=== PATIENT | male | born 1960 | race Caucasian/White ===

== ENCOUNTER 2017-08-25 01:04 | Inpatient (IN) | payer MEDICAID, OTHER ==
[~2017-08-25] VITALS: Ht 180.3 cm; Wt 83.9 kg
[2017-08-25] VITALS (8 sets, daily range): BP systolic 119–146; BP diastolic 64–85
[2017-08-25] MEDS ORDERED: Morphine Sulfate 4mg/ml Inj IVP ONE (01:30)
[2017-08-25 02:12] LABS: BASOPHILS % (AUTO) 0.4 % (0.0-2.0); HEMATOCRIT 49.5 % (42.0-52.0); LYMPHOCYTES % (AUTO) 6.1 % (20.0-45.0); MEAN CORPUSCULAR VOLUME 84 FL (80-99); MONOCYTES % (AUTO) 10.9 % (1.0-10.0); NEUTROPHILS % (AUTO) 82.5 % (45.0-75.0); PLATELET COUNT 245 K/UL (150-450); RED BLOOD COUNT 5.89 M/UL (4.70-6.10); RED CELL DISTRIBUTION WIDTH 11.1 % (11.6-14.8); WHITE BLOOD COUNT 16.8 K/UL (4.8-10.8)
[2017-08-25 02:12] LABS: BILIRUBIN, URINE 1+ (NEGATIVE); GLUCOSE, URINE (UA) NEGATIVE (NEGATIVE); KETONES,URINE 4+ (NEGATIVE); LEUKOCYTE ESTERASE ,URINE NEGATIVE (NEGATIVE); NITRITE,URINE NEGATIVE (NEGATIVE); PH,URINE 5 (4.5-8.0); PROTEIN,URINE 2+ (NEGATIVE); UROBILINOGEN,URINE 1 MG/DL (0.0-1.0)
[2017-08-25 02:22] LABS: APPEARANCE,URINE CLEAR; COLOR,URINE YELLOW
[2017-08-25 02:36] LABS: ALANINE AMINOTRANSFERASE 25 U/L (12-78); ALBUMIN 4.1 G/DL (3.4-5.0); ALBUMIN/GLOBULIN RATIO 1.2 (1.0-2.7); ALKALINE PHOSPHATASE 88 U/L (46-116); ANION GAP 9 mmol/L (5-15); ASPARTATE AMINO TRANSFERASE 19 U/L (15-37); BILIRUBIN,TOTAL 1.6 MG/DL (0.2-1.0); BLOOD UREA NITROGEN 57 mg/dL (7-18); CALCIUM 8.2 MG/DL (8.5-10.1); CARBON DIOXIDE 37 MMOL/L (21-32); CHLORIDE 74 MMOL/L (98-107); CREATININE 1.3 MG/DL (0.55-1.30); SODIUM 121 MMOL/L (136-145)
[2017-08-25 02:37] LABS: POTASSIUM 2.6 MMOL/L (3.5-5.1)
[2017-08-25 02:39] LABS: BILIRUBIN,DIRECT 0.3 MG/DL (0.0-0.3)
--- NOTE | 2017-08-25 04:47 | Emergency Room Report ---
History of Present Illness General Chief Complaint: Nausea, Vomiting, and Diarrhea Source: Patient Present Illness HPI 56-year-old male presents ED for evaluation. complaining of abdominal pain nausea and vomiting 3 days. Feels like his diverticulitis. States he feels "obstructed". Unable to have bowel movement. Pain is sharp, 5 out of 10, nonradiating. Denies fevers or chills. Denies chest pain or shortness of breath. No other aggravating relieving factors. Denies any other associated symptoms Allergies: Coded Allergies: No Known Allergies (Unverified , 08/25/17) Patient History Past Medical History: other - diverticulitis Past Surgical History: none Pertinent Family History: none Social History: Denies: smoking, alcohol use, drug use Immunizations: UTD Reviewed Nursing Documentation: PMH: Agreed; PSxH: Agreed Nursing Documentation-PMH Hx Gastrointestinal Problems: Yes - Diverticulitis Review of Systems All Other Systems: negative except mentioned in HPI Physical Exam Vital Signs Date Time Temp Pulse Resp B/P (MAP) Pulse Ox O2 Delivery O2 Flow Rate FiO2 08/25/17 01:02 97.4 110 20 147/83 99 Room Air 97.3 Sp02 EP Interpretation: reviewed, normal General Appearance: no apparent distress, alert, GCS 15, non-toxic Head: normocephalic, atraumatic Eyes: bilateral eye normal inspection, bilateral eye PERRL ENT: hearing grossly normal, normal pharynx, no angioedema, normal voice Neck: full range of motion, supple/symm/no masses Respiratory: chest non-tender, lungs clear, normal breath sounds, speaking full sentences Cardiovascular #1: regular rate, rhythm, no edema Cardiovascular #2: 2+ carotid (R), 2+ carotid (L), 2+ radial (R), 2+ radial (L) , 2+ dorsalis pedis (R), 2+ dorsalis pedis (L) Gastrointestinal: normal bowel sounds, soft, non-distended, no guarding, no rebound, tenderness Rectal: deferred Genitourinary: normal inspection, no CVA tenderness Musculoskeletal: back normal, gait/station normal, normal range of motion, non- tender Neurologic: alert, oriented x3, responsive, motor strength/tone normal, sensory intact, speech normal Psychiatric: judgement/insight normal, memory normal, mood/affect normal, no suicidal/homicidal ideation Reflexes: 3+ bicep (R), 3+ bicep (L), 3+ tricep (R), 3+ tricep (L), 3+ knee (R) , 3+ knee (L) Skin: normal color, no rash, warm/dry, well hydrated Lymphatic: no adenopathy Medical Decision Making Diagnostic Impression: Primary Impression: Small bowel obstruction ER Course Hospital Course 56-year-old male presents to ED with abdominal pain and vomiting Differential diagnoses include: BPH, cystitis, pyelonephritis, kidney stone,SBO Clinical course Patient placed on stretcher. telemetry monitor. After initial history and physical I ordered labs, IV fluids, UA, pain medication and CT scan Labs - noted leukocytosis, Hb/Hct stable. K 2.6 CT abdomen and pelvis - SBO with transition point in RLQ Potassium repleted. Discussed findings with patient. Recommend admission Case discussed with Dr. Resendez and he agreed to accept the patient to his service for further care and support. Dr. Bob agreed to consult on case I feel this is a highly complex case requiring extensive working including EKG/ Rhythm strip, Xray/CT/US, Blood/urine lab work, repeat exams while in ED, and administration of strong opiates/narcotics for pain control, admission to hospital or close patient follow up. Diagnosis - small bowel obstruction Patient admitted to floor in serious condition Labs Test 08/25/17 01:50 08/25/17 01:57 Urine Color Yellow Urine Appearance Clear Urine pH 5 (4.5-8.0) Urine Specific [place] 1.020 (1.005-1.035) Urine Protein 2+ (NEGATIVE) Urine Glucose (UA) Negative (NEGATIVE) Urine Ketones 4+ (NEGATIVE) Urine Occult Blood 2+ (NEGATIVE) Urine Nitrite Negative (NEGATIVE) Urine Bilirubin 1+ (NEGATIVE) Urine Ictotest Negative Urine Urobilinogen 1 MG/DL (0.0-1.0) Urine Leukocyte Esterase Negative (NEGATIVE) Urine RBC 2-4 /HPF (0 - 0) Urine WBC 2-4 /HPF (0 - 0) Urine Squamous Epithelial Cells Few /LPF (NONE/OCC) Urine Bacteria Few /HPF (NONE) White Blood Count 16.8 K/UL (4.8-10.8) Red Blood Count 5.89 M/UL (4.70-6.10) Hemoglobin 18.0 G/DL (14.2-18.0) Hematocrit 49.5 % (42.0-52.0) Mean Corpuscular Volume 84 FL (80-99) Mean Corpuscular Hemoglobin 30.5 PG (27.0-31.0) Mean Corpuscular Hemoglobin Concent 36.3 G/DL (32.0-36.0) Red Cell Distribution Width 11.1 % (11.6-14.8) Platelet Count 245 K/UL (150-450) Mean Platelet Volume 9.5 FL (6.5-10.1) Neutrophils (%) (Auto) 82.5 % (45.0-75.0) Lymphocytes (%) (Auto) 6.1 % (20.0-45.0) Monocytes (%) (Auto) 10.9 % (1.0-10.0) Eosinophils (%) (Auto) 0.0 % (0.0-3.0) Basophils (%) (Auto) 0.4 % (0.0-2.0) Sodium Level 121 MMOL/L (136-145) Potassium Level 2.6 MMOL/L (3.5-5.1) Chloride Level 74 MMOL/L (98-107) Carbon Dioxide Level 37 MMOL/L (21-32) Anion Gap 9 mmol/L (5-15) Blood Urea Nitrogen 57 mg/dL (7-18) Creatinine 1.3 MG/DL (0.55-1.30) Estimat Glomerular Filtration Rate 56.7 mL/min (>60) Glucose Level 131 MG/DL (74-106) Calcium Level 8.2 MG/DL (8.5-10.1) Total Bilirubin 1.6 MG/DL (0.2-1.0) Direct Bilirubin 0.3 MG/DL (0.0-0.3) Aspartate Amino Transf (AST/SGOT) 19 U/L (15-37) Alanine Aminotransferase (ALT/SGPT) 25 U/L (12-78) Alkaline Phosphatase 88 U/L (46-116) Total Protein 7.6 G/DL (6.4-8.2) Albumin 4.1 G/DL (3.4-5.0) Globulin 3.5 g/dL Albumin/Globulin Ratio 1.2 (1.0-2.7) Lipase 121 U/L (73-393) CT/MRI/US Diagnostic Results CT/MRI/US Diagnostic Results : Imaging Test Ordered: CT A/P Impression complete small bowel obstruction. transition point in RLQ Last Vital Signs Date Time Temp Pulse Resp B/P (MAP) Pulse Ox O2 Delivery O2 Flow Rate FiO2 08/25/17 02:40 97.4 08/25/17 01:02 110 20 147/83 99 Room Air Status: improved Disposition: ADMITTED INPATIENT Condition: Serious Scripts No Active Prescriptions or Reported Meds Referrals: [facility],REFERRING (PCP) Kenroy Hernandez MD Aug 25, 2017 04:47
[2017-08-25] MEDS ORDERED: LORazepam Inj 2mg/ml 1ml IV PRN (07:30)
[2017-08-25] MEDS ORDERED: Nitroglycerin Subl 0.4mg tab SL PRN (07:30)
[2017-08-25] MEDS ORDERED: Mylanta II UD 30ml ORAL PRN (07:30)
[2017-08-25] MEDS ORDERED: Morphine Sulfate 4mg/ml Inj IVP PRN (07:30)
[2017-08-25] MEDS: Heparin 5000 units/ml inj SUBQ SCH ×2 (09:00→20:25)
--- NOTE | 2017-08-25 10:59 | GI Initial Consult Note ---
History of Present Illness General Date patient seen: Aug 25, 2017 Time patient seen: 10:56 Reason for Hospitalization: Nausea, Vomiting, and Diarrhea Referring physician: VARGHESE LOPEZ Reason for Consultation: SBO, N/V Present Illness HPI 56-year-old male presents ED for evaluation. complaining of abdominal pain nausea and vomiting 3 days. Feels like his diverticulitis. States he feels "obstructed". Unable to have bowel movement. Pain is sharp, 5 out of 10, nonradiating. Denies fevers or chills. Denies chest pain or shortness of breath. No other aggravating relieving factors. Denies any other associated symptoms GI consulted for SBO, reports of N/V. Pt seen on floor, awake A&Ox4 currently has NGT with gastric output. Abdomen is soft, non-distended. Patient had BM this morning. He presents today with possible SBO, hypokalemia. Had recent colonoscopy x 3 months, found with diverticulosis and polyps. Home Meds No Active Prescriptions or Reported Meds Med list reviewed/reconciled: Yes Allergies: Coded Allergies: No Known Allergies (Unverified , 08/25/17) Patient History History Provided By: Patient, Medical Record PMH Narrative Past Medical History: other - diverticulitis Past Surgical History: none Pertinent Family History: none Social History: Denies: smoking, alcohol use, drug use Immunizations: UTD Reviewed Nursing Documentation: PMH: Agreed; PSxH: Agreed Nursing Documentation-PMH Hx Gastrointestinal Problems: Yes - Diverticulitis Social History: Denies: smoking, alcohol use, drug use, other Review of Systems All Other Systems: negative except mentioned in HPI Physical Exam Vital Signs Date Time Temp Pulse Resp B/P (MAP) Pulse Ox O2 Delivery O2 Flow Rate FiO2 08/25/17 01:02 97.4 110 20 147/83 99 Room Air 97.3 Sp02 EP Interpretation: reviewed, normal Labs Laboratory Tests Test 08/25/17 01:50 08/25/17 01:57 Urine Color Yellow Urine Appearance Clear Urine pH 5 (4.5-8.0) Urine Specific [place] 1.020 (1.005-1.035) Urine Protein 2+ (NEGATIVE) H Urine Glucose (UA) Negative (NEGATIVE) Urine Ketones 4+ (NEGATIVE) H Urine Occult Blood 2+ (NEGATIVE) H Urine Nitrite Negative (NEGATIVE) Urine Bilirubin 1+ (NEGATIVE) H Urine Ictotest Negative Urine Urobilinogen 1 MG/DL (0.0-1.0) H Urine Leukocyte Esterase Negative (NEGATIVE) Urine RBC 2-4 /HPF (0 - 0) H Urine WBC 2-4 /HPF (0 - 0) Urine Squamous Epithelial Cells Few /LPF (NONE/OCC) Urine Bacteria Few /HPF (NONE) White Blood Count 16.8 K/UL (4.8-10.8) H Red Blood Count 5.89 M/UL (4.70-6.10) Hemoglobin 18.0 G/DL (14.2-18.0) Hematocrit 49.5 % (42.0-52.0) Mean Corpuscular Volume 84 FL (80-99) Mean Corpuscular Hemoglobin 30.5 PG (27.0-31.0) Mean Corpuscular Hemoglobin Concent 36.3 G/DL (32.0-36.0) H Red Cell Distribution Width 11.1 % (11.6-14.8) L Platelet Count 245 K/UL (150-450) Mean Platelet Volume 9.5 FL (6.5-10.1) Neutrophils (%) (Auto) 82.5 % (45.0-75.0) H Lymphocytes (%) (Auto) 6.1 % (20.0-45.0) L Monocytes (%) (Auto) 10.9 % (1.0-10.0) H Eosinophils (%) (Auto) 0.0 % (0.0-3.0) Basophils (%) (Auto) 0.4 % (0.0-2.0) Sodium Level 121 MMOL/L (136-145) L Potassium Level 2.6 MMOL/L (3.5-5.1) *L Chloride Level 74 MMOL/L (98-107) L Carbon Dioxide Level 37 MMOL/L (21-32) H Anion Gap 9 mmol/L (5-15) Blood Urea Nitrogen 57 mg/dL (7-18) H Creatinine 1.3 MG/DL (0.55-1.30) Estimat Glomerular Filtration Rate 56.7 mL/min (>60) Glucose Level 131 MG/DL (74-106) H Calcium Level 8.2 MG/DL (8.5-10.1) L Total Bilirubin 1.6 MG/DL (0.2-1.0) H Direct Bilirubin 0.3 MG/DL (0.0-0.3) Aspartate Amino Transf (AST/SGOT) 19 U/L (15-37) Alanine Aminotransferase (ALT/SGPT) 25 U/L (12-78) Alkaline Phosphatase 88 U/L (46-116) Total Protein 7.6 G/DL (6.4-8.2) Albumin 4.1 G/DL (3.4-5.0) Globulin 3.5 g/dL Albumin/Globulin Ratio 1.2 (1.0-2.7) Lipase 121 U/L (73-393) General Appearance: well appearing, no apparent distress, alert Head: normocephalic EENT: PERRL/EOMI, normal ENT inspection Neck: supple Respiratory: normal breath sounds, no respiratory distress Cardiovascular: normal rate Gastrointestinal: normal inspection, non tender, soft, normal bowel sounds, non -distended Rectal: deferred Genitourinary: deferred Musculoskeletal: normal inspection, back normal Neurologic: normal inspection, alert, oriented x3, responsive Psychiatric: normal inspection, judgement/insight normal, memory normal Skin: normal inspection, normal color, no rash, warm/dry, palpation normal, well hydrated Lymphatic: normal inspection, no adenopathy Current Medications Current Medications Medications (Trade) Dose Ordered Sig/Sandi Route PRN Reason Start Time Stop Time Status Last Admin Dose Admin Acetaminophen (Tylenol) 650 mg Q4H PRN ORAL fever>100.5 08/25/17 07:30 09/24/17 07:29 Al Hydroxide/Mg Hydroxide (Mylanta II) 30 ml Q6H PRN ORAL dyspepsia 08/25/17 07:30 09/24/17 07:29 Dextrose (Dextrose 50%) 25 ml STAT PRN IV Hypoglycemia 08/25/17 07:15 09/24/17 07:14 Dextrose (Dextrose 50%) 50 ml STAT PRN IV Hypoglycemia 08/25/17 07:15 09/24/17 07:14 Dextrose/Sodium Chloride 1,000 ml @ 75 mls/hr [id number] IV 08/25/17 07:30 09/24/17 07:29 Diphenhydramine HCl (Benadryl) 25 mg Q6H PRN ORAL Itching/Pruritis 08/25/17 07:30 09/24/17 07:29 Heparin Sodium (Porcine) (Heparin 5000 units/ml) 5,000 units EVERY 12 HOURS SUBQ 08/25/17 09:00 09/24/17 08:59 Lorazepam (Ativan 2mg/ml 1ml) 1 mg Q4H PRN IV agitation 08/25/17 07:30 09/01/17 07:29 Morphine Sulfate (Morphine Sulfate) 2 mg Q4H PRN IVP Severe Pain (Pain Scale 7-10) 08/25/17 07:30 09/01/17 07:29 Nitroglycerin (Ntg) 0.4 mg Q5M X 3 DOSES PRN SL Prn Chest Pain 08/25/17 07:30 09/24/17 07:29 Ondansetron HCl (Zofran) 4 mg Q6H PRN IVP Nausea & Vomiting 08/25/17 07:30 09/24/17 07:29 Pantoprazole (Protonix) 40 mg DAILY IV 08/25/17 09:00 09/24/17 08:59 Polyethylene Glycol (Miralax) 17 gm HSPRN PRN ORAL Constipation 08/25/17 21:00 09/24/17 20:59 Promethazine HCl (Phenergan) 25 mg EVERY 8 HOURS PRN IV refractory nausea 08/25/17 07:30 09/24/17 07:29 Temazepam (Restoril) 15 mg HSPRN PRN ORAL Insomnia 08/25/17 21:00 09/01/17 20:59 GI: Plan Problems: (1) Dehydration (2) Leukocytosis (3) Small bowel obstruction Plan fu surgical recs maintain NPO + IVFs bowel decompression >> NGT to LIS fu CT AP pain mgmt electrolyte correction abx serial imaging prn fu labs Discussed with Dr. Chaney. Thank you for this patient referral, we will follow. Alis Martinez N.P. Aug 25, 2017 10:59
[2017-08-25] MEDS: Pantoprazole Inj IV SCH (11:04)
[2017-08-25] MEDS: D5 1/2NS 1,000 ML IV SCH ×2 (11:04→20:25)
--- NOTE | 2017-08-25 13:21 | Diagnostic Imaging Report ---
Clinical Indication: Abdominal pain 3 days Technique: No oral contrast utilized, per emergency room physician request IV administration nonionic contrast. Venous phase spiral acquisition obtained through the abdomen. The initial acquisition did not include the pelvis, so additional acquisitions obtained through the pelvis subsequently. Multiplanar reconstructions were generated. Total dose length product 563.33 and 678 mGycm. CTDIvol(s) 12.44 and 15 mGy. Dose reduction achieved using automated exposure control Comparison: none Findings: Small bowel loops are massively dilated and fluid-filled. The stomach is also massively dilated, fluid-filled and gas-filled. A transition point is seen from dilated small bowel to collapsed ileum in the pelvis, just to the right of midline, images 69 through 75 series 3 pelvic exam. The appendix is normal. There is colonic diverticulosis. No evidence of diverticulitis. No free or loculated intraperitoneal air or fluid is evident The liver demonstrates scattered subcentimeter low-attenuation lesions which are too small to characterize, most likely benign simple cysts or bile hamartomas. It demonstrates mild low attenuation, consistent with fatty change The gallbladder, bile ducts, pancreas, spleen, adrenals are unremarkable. The right kidney demonstrates a 2 mm upper pole calyceal calculus. The left kidney is unremarkable. No hydronephrosis or hydroureter or ureteral calculi demonstrated. The bladder is unremarkable. The bones are unremarkable except for degenerative changes of the right hip.. There are atelectatic changes at both lung bases. Impression: Positive for high-grade small bowel obstruction, transition point at the level of the ileum in the right pelvis. The appearance is somewhat suggestive of adhesions. Diverticulosis. No evidence of diverticulitis Evidence of mild hepatic steatosis Nonobstructive right upper pole renal calculus Centimeters low-attenuation liver lesions, too small to characterize, most likely benign simple cysts or bile hamartomas. No further follow-up necessary Other findings as noted, including basilar atelectasis, degenerative changes of the right hip This agrees with the preliminary interpretation provided overnight by [facility] teleradiology service. The CT scanner at [facility] is accredited by the [employer] and the scans are performed using protocols designed to limit radiation exposure to as low as reasonably achievable to attain images of sufficient resolution adequate for diagnostic evaluation.
--- NOTE | 2017-08-25 17:22 | Diagnostic Imaging Report ---
Indication: Abdominal pain, nausea, vomiting Technique: Brandt-scale and duplex images of the upper abdomen were obtained Comparison: none Findings: Gallbladder is unremarkable, without stones, wall thickening, nor pericholecystic fluid. Sonographic Gaitan's sign is negative. Common bile duct measures 5 mm in diameter. No intrahepatic biliary ductal dilatation. Liver demonstrates normal echogenicity, no focal abnormality. Portal vein and hepatic veins are patent. Pancreas is unremarkable. Spleen is unremarkable. Left kidney measures 12.9 cm in length. Right kidney measures 11.8 cm length. Both kidneys demonstrate normal echogenicity. There is no hydronephrosis. There are small renal cysts bilaterally . Non-aneurysmal abdominal aorta . Impression: Essentially unremarkable exam. Negative for gallstones, dilated ducts, or other significant abnormality Incidental finding of bilateral renal cysts
--- NOTE | 2017-08-25 19:07 | Consultation ---
History of Present Illness General Chief Complaint: Nausea, Vomiting, and Diarrhea Referring physician: VARGHESE LOPEZ Reason for Consultation: SBO, N/V Present Illness Allergies: Coded Allergies: No Known Allergies (Unverified , 08/25/17) Medication History No Active Prescriptions or Reported Meds Patient History Healthcare decision maker Resuscitation status Full Code Advanced Directive on File Physical Exam Last 24 Hour Vital Signs Date Time Temp Pulse Resp B/P (MAP) Pulse Ox O2 Delivery O2 Flow Rate FiO2 08/25/17 16:20 98.4 87 20 119/72 95 98.4 08/25/17 11:44 98.0 82 20 134/68 95 98.0 08/25/17 08:12 97.8 85 20 129/82 95 97.8 08/25/17 07:20 97.4 83 16 129/83 95 Room Air 97.4 08/25/17 07:05 83 16 129/83 95 Room Air 08/25/17 05:30 87 21 128/84 95 Room Air 08/25/17 03:30 93 22 146/85 96 Room Air 08/25/17 02:40 97.4 08/25/17 02:10 97.4 08/25/17 01:30 84 15 131/64 98 Room Air 08/25/17 01:02 97.4 110 20 147/83 99 Room Air 97.3 Intake and Output 08/24/17 08/25/17 19:00 07:00 Intake Total 0 ml Balance 0 ml Intake Oral 0 ml Laboratory Tests Test 08/25/17 01:50 08/25/17 01:57 Urine Color Yellow Urine Appearance Clear Urine pH 5 (4.5-8.0) Urine Specific [place] 1.020 (1.005-1.035) Urine Protein 2+ (NEGATIVE) H Urine Glucose (UA) Negative (NEGATIVE) Urine Ketones 4+ (NEGATIVE) H Urine Occult Blood 2+ (NEGATIVE) H Urine Nitrite Negative (NEGATIVE) Urine Bilirubin 1+ (NEGATIVE) H Urine Ictotest Negative Urine Urobilinogen 1 MG/DL (0.0-1.0) H Urine Leukocyte Esterase Negative (NEGATIVE) Urine RBC 2-4 /HPF (0 - 0) H Urine WBC 2-4 /HPF (0 - 0) Urine Squamous Epithelial Cells Few /LPF (NONE/OCC) Urine Bacteria Few /HPF (NONE) White Blood Count 16.8 K/UL (4.8-10.8) H Red Blood Count 5.89 M/UL (4.70-6.10) Hemoglobin 18.0 G/DL (14.2-18.0) Hematocrit 49.5 % (42.0-52.0) Mean Corpuscular Volume 84 FL (80-99) Mean Corpuscular Hemoglobin 30.5 PG (27.0-31.0) Mean Corpuscular Hemoglobin Concent 36.3 G/DL (32.0-36.0) H Red Cell Distribution Width 11.1 % (11.6-14.8) L Platelet Count 245 K/UL (150-450) Mean Platelet Volume 9.5 FL (6.5-10.1) Neutrophils (%) (Auto) 82.5 % (45.0-75.0) H Lymphocytes (%) (Auto) 6.1 % (20.0-45.0) L Monocytes (%) (Auto) 10.9 % (1.0-10.0) H Eosinophils (%) (Auto) 0.0 % (0.0-3.0) Basophils (%) (Auto) 0.4 % (0.0-2.0) Sodium Level 121 MMOL/L (136-145) L Potassium Level 2.6 MMOL/L (3.5-5.1) *L Chloride Level 74 MMOL/L (98-107) L Carbon Dioxide Level 37 MMOL/L (21-32) H Anion Gap 9 mmol/L (5-15) Blood Urea Nitrogen 57 mg/dL (7-18) H Creatinine 1.3 MG/DL (0.55-1.30) Estimat Glomerular Filtration Rate 56.7 mL/min (>60) Glucose Level 131 MG/DL (74-106) H Calcium Level 8.2 MG/DL (8.5-10.1) L Total Bilirubin 1.6 MG/DL (0.2-1.0) H Direct Bilirubin 0.3 MG/DL (0.0-0.3) Aspartate Amino Transf (AST/SGOT) 19 U/L (15-37) Alanine Aminotransferase (ALT/SGPT) 25 U/L (12-78) Alkaline Phosphatase 88 U/L (46-116) Total Protein 7.6 G/DL (6.4-8.2) Albumin 4.1 G/DL (3.4-5.0) Globulin 3.5 g/dL Albumin/Globulin Ratio 1.2 (1.0-2.7) Lipase 121 U/L (73-393) Height (Feet): 5 Height (Inches): 11.00 Weight (Pounds): 185 Medications Current Medications Medications (Trade) Dose Ordered Sig/Sandi Route PRN Reason Start Time Stop Time Status Last Admin Dose Admin Acetaminophen (Tylenol) 650 mg Q4H PRN ORAL fever>100.5 08/25/17 07:30 09/24/17 07:29 Al Hydroxide/Mg Hydroxide (Mylanta II) 30 ml Q6H PRN ORAL dyspepsia 08/25/17 07:30 09/24/17 07:29 Dextrose (Dextrose 50%) 25 ml STAT PRN IV Hypoglycemia 08/25/17 07:15 09/24/17 07:14 Dextrose (Dextrose 50%) 50 ml STAT PRN IV Hypoglycemia 08/25/17 07:15 09/24/17 07:14 Dextrose/Sodium Chloride 1,000 ml @ 75 mls/hr [id number] IV 08/25/17 07:30 09/24/17 07:29 08/25/17 11:04 Diphenhydramine HCl (Benadryl) 25 mg Q6H PRN ORAL Itching/Pruritis 08/25/17 07:30 09/24/17 07:29 Heparin Sodium (Porcine) (Heparin 5000 units/ml) 5,000 units EVERY 12 HOURS SUBQ 08/25/17 09:00 09/24/17 08:59 Levofloxacin 100 ml @ 100 mls/hr Q24H IVPB 08/25/17 18:00 09/01/17 17:59 08/25/17 18:19 Lorazepam (Ativan 2mg/ml 1ml) 1 mg Q4H PRN IV agitation 08/25/17 07:30 09/01/17 07:29 Metronidazole 100 ml @ 100 mls/hr Q8HR IVPB 08/25/17 20:00 09/01/17 19:59 Morphine Sulfate (Morphine Sulfate) 2 mg Q4H PRN IVP Severe Pain (Pain Scale 7-10) 08/25/17 07:30 09/01/17 07:29 Nitroglycerin (Ntg) 0.4 mg Q5M X 3 DOSES PRN SL Prn Chest Pain 08/25/17 07:30 09/24/17 07:29 Ondansetron HCl (Zofran) 4 mg Q6H PRN IVP Nausea & Vomiting 08/25/17 07:30 09/24/17 07:29 Pantoprazole (Protonix) 40 mg DAILY IV 08/25/17 09:00 09/24/17 08:59 08/25/17 11:04 Polyethylene Glycol (Miralax) 17 gm HSPRN PRN ORAL Constipation 08/25/17 21:00 09/24/17 20:59 Promethazine HCl (Phenergan) 25 mg EVERY 8 HOURS PRN IV refractory nausea 08/25/17 07:30 09/24/17 07:29 Temazepam (Restoril) 15 mg HSPRN PRN ORAL Insomnia 08/25/17 21:00 09/01/17 20:59 Jojo Cooper MD Aug 25, 2017 19:07
--- NOTE | 2017-08-25 20:46 | Consultation ---
History of Present Illness General Date patient seen: Aug 25, 2017 Chief Complaint: Nausea, Vomiting, and Diarrhea Referring physician: VARGHESE LPOEZ Reason for Consultation: SBO, N/V Present Illness HPI 56M hx of diverticulitis presented with abdominal pain, nausea, emesis for few days. believed it to be related to diverticulitis and did not seek medical attention at first until pain, nausea, and emesis worsening. Came to ED for evaluation and noted to have obstruction on CT. Surgery called to evaluate. pain cramping generalized pain. bilious emesis. no flatus. history of two prior lap CALLY hernia repairs Allergies: Coded Allergies: No Known Allergies (Unverified , 08/25/17) Medication History No Active Prescriptions or Reported Meds Patient History History Provided By: Patient, Medical Record, PMD Healthcare decision maker Resuscitation status Full Code Advanced Directive on File Past Medical/Surgical History Past Medical/Surgical History: (1) Dehydration (2) Leukocytosis (3) Small bowel obstruction Review of Systems All Other Systems: negative except mentioned in HPI Physical Exam General Appearance: no apparent distress, alert Lines, tubes and drains: peripheral HEENT: mucous membranes moist Neck: normal inspection Respiratory/Chest: lungs clear, normal breath sounds, no respiratory distress, no accessory muscle use Cardiovascular/Chest: normal peripheral pulses, normal rate Abdomen: soft, distended, tender Extremities: normal range of motion, non-tender Skin Exam: normal pigmentation Neurologic: alert, oriented x 3 Last 24 Hour Vital Signs Date Time Temp Pulse Resp B/P (MAP) Pulse Ox O2 Delivery O2 Flow Rate FiO2 08/25/17 16:20 98.4 87 20 119/72 95 98.4 08/25/17 11:44 98.0 82 20 134/68 95 98.0 08/25/17 08:12 97.8 85 20 129/82 95 97.8 08/25/17 07:20 97.4 83 16 129/83 95 Room Air 97.4 08/25/17 07:05 83 16 129/83 95 Room Air 08/25/17 05:30 87 21 128/84 95 Room Air 08/25/17 03:30 93 22 146/85 96 Room Air 08/25/17 02:40 97.4 08/25/17 02:10 97.4 08/25/17 01:30 84 15 131/64 98 Room Air 08/25/17 01:02 97.4 110 20 147/83 99 Room Air 97.3 Intake and Output 08/24/17 08/25/17 19:00 07:00 Intake Total 0 ml Balance 0 ml Intake Oral 0 ml Laboratory Tests Test 08/25/17 01:50 08/25/17 01:57 Urine Color Yellow Urine Appearance Clear Urine pH 5 (4.5-8.0) Urine Specific [place] 1.020 (1.005-1.035) Urine Protein 2+ (NEGATIVE) H Urine Glucose (UA) Negative (NEGATIVE) Urine Ketones 4+ (NEGATIVE) H Urine Occult Blood 2+ (NEGATIVE) H Urine Nitrite Negative (NEGATIVE) Urine Bilirubin 1+ (NEGATIVE) H Urine Ictotest Negative Urine Urobilinogen 1 MG/DL (0.0-1.0) H Urine Leukocyte Esterase Negative (NEGATIVE) Urine RBC 2-4 /HPF (0 - 0) H Urine WBC 2-4 /HPF (0 - 0) Urine Squamous Epithelial Cells Few /LPF (NONE/OCC) Urine Bacteria Few /HPF (NONE) White Blood Count 16.8 K/UL (4.8-10.8) H Red Blood Count 5.89 M/UL (4.70-6.10) Hemoglobin 18.0 G/DL (14.2-18.0) Hematocrit 49.5 % (42.0-52.0) Mean Corpuscular Volume 84 FL (80-99) Mean Corpuscular Hemoglobin 30.5 PG (27.0-31.0) Mean Corpuscular Hemoglobin Concent 36.3 G/DL (32.0-36.0) H Red Cell Distribution Width 11.1 % (11.6-14.8) L Platelet Count 245 K/UL (150-450) Mean Platelet Volume 9.5 FL (6.5-10.1) Neutrophils (%) (Auto) 82.5 % (45.0-75.0) H Lymphocytes (%) (Auto) 6.1 % (20.0-45.0) L Monocytes (%) (Auto) 10.9 % (1.0-10.0) H Eosinophils (%) (Auto) 0.0 % (0.0-3.0) Basophils (%) (Auto) 0.4 % (0.0-2.0) Sodium Level 121 MMOL/L (136-145) L Potassium Level 2.6 MMOL/L (3.5-5.1) *L Chloride Level 74 MMOL/L (98-107) L Carbon Dioxide Level 37 MMOL/L (21-32) H Anion Gap 9 mmol/L (5-15) Blood Urea Nitrogen 57 mg/dL (7-18) H Creatinine 1.3 MG/DL (0.55-1.30) Estimat Glomerular Filtration Rate 56.7 mL/min (>60) Glucose Level 131 MG/DL (74-106) H Calcium Level 8.2 MG/DL (8.5-10.1) L Total Bilirubin 1.6 MG/DL (0.2-1.0) H Direct Bilirubin 0.3 MG/DL (0.0-0.3) Aspartate Amino Transf (AST/SGOT) 19 U/L (15-37) Alanine Aminotransferase (ALT/SGPT) 25 U/L (12-78) Alkaline Phosphatase 88 U/L (46-116) Total Protein 7.6 G/DL (6.4-8.2) Albumin 4.1 G/DL (3.4-5.0) Globulin 3.5 g/dL Albumin/Globulin Ratio 1.2 (1.0-2.7) Lipase 121 U/L (73-393) Height (Feet): 5 Height (Inches): 11.00 Weight (Pounds): 185 Medications Current Medications Medications (Trade) Dose Ordered Sig/Sandi Route PRN Reason Start Time Stop Time Status Last Admin Dose Admin Acetaminophen (Tylenol) 650 mg Q4H PRN ORAL fever>100.5 08/25/17 07:30 09/24/17 07:29 Al Hydroxide/Mg Hydroxide (Mylanta II) 30 ml Q6H PRN ORAL dyspepsia 08/25/17 07:30 09/24/17 07:29 Dextrose (Dextrose 50%) 25 ml STAT PRN IV Hypoglycemia 08/25/17 07:15 09/24/17 07:14 Dextrose (Dextrose 50%) 50 ml STAT PRN IV Hypoglycemia 08/25/17 07:15 09/24/17 07:14 Dextrose/Sodium Chloride 1,000 ml @ 75 mls/hr [id number] IV 08/25/17 07:30 09/24/17 07:29 08/25/17 20:25 Diphenhydramine HCl (Benadryl) 25 mg Q6H PRN ORAL Itching/Pruritis 08/25/17 07:30 09/24/17 07:29 Heparin Sodium (Porcine) (Heparin 5000 units/ml) 5,000 units EVERY 12 HOURS SUBQ 08/25/17 09:00 09/24/17 08:59 08/25/17 20:25 Levofloxacin 100 ml @ 100 mls/hr Q24H IVPB 08/25/17 18:00 09/01/17 17:59 08/25/17 18:19 Lorazepam (Ativan 2mg/ml 1ml) 1 mg Q4H PRN IV agitation 08/25/17 07:30 09/01/17 07:29 Metronidazole 100 ml @ 100 mls/hr Q8HR IVPB 08/25/17 20:00 09/01/17 19:59 08/25/17 20:24 Morphine Sulfate (Morphine Sulfate) 2 mg Q4H PRN IVP Severe Pain (Pain Scale 7-10) 08/25/17 07:30 09/01/17 07:29 Nitroglycerin (Ntg) 0.4 mg Q5M X 3 DOSES PRN SL Prn Chest Pain 08/25/17 07:30 09/24/17 07:29 Ondansetron HCl (Zofran) 4 mg Q6H PRN IVP Nausea & Vomiting 08/25/17 07:30 09/24/17 07:29 Pantoprazole (Protonix) 40 mg DAILY IV 08/25/17 09:00 09/24/17 08:59 08/25/17 11:04 Polyethylene Glycol (Miralax) 17 gm HSPRN PRN ORAL Constipation 08/25/17 21:00 09/24/17 20:59 Promethazine HCl (Phenergan) 25 mg EVERY 8 HOURS PRN IV refractory nausea 08/25/17 07:30 09/24/17 07:29 Temazepam (Restoril) 15 mg HSPRN PRN ORAL Insomnia 08/25/17 21:00 09/01/17 20:59 Assessment/Plan Problem List: (1) Small bowel obstruction Assessment & Plan: SBO. NG tube placed and 2.5L of contents evacuated. patient felt significantly better soon after. later in afternoon began to have flatus and multiple loose bm's. abd now soft, non tender, non distended. sbo likely from adhesions and seems to be resolving fortunately. exam benign. return of bowel function will monitor clinically. if worse will need to go to OR if improved will start diet. ICD Codes: K56.609 - Unspecified intestinal obstruction, unspecified as to partial versus complete obstruction SNOMED: 815722560 Status: stable Ervin Bob Aug 25, 2017 20:46
[2017-08-25] MEDS ORDERED: Miralax 17gm pkt ORAL PRN (21:00)
[2017-08-26] VITALS: BP 124/79
--- NOTE | 2017-08-26 03:00 | History and Physical Report ---
DATE OF ADMISSION: 08/25/2017 CHIEF COMPLAINT: The patient is a 56-year-old white male with a history of diverticulosis and diverticulitis, who presents with chief complaint of nausea and vomiting for 3 days. HISTORY OF PRESENT ILLNESS: The patient states he went to [place] 2 weeks ago. The patient had a flare of diverticulitis. The patient has a history of bowel obstruction secondary to diverticulitis. The patient states three days ago, he began to experience nausea and vomiting. The patient did not have a bowel movement for 3 days. The patient was then unable to tolerate liquids or solids. The patient presented to [place] emergency room. A CT scan of the abdomen revealed a high-grade small bowel obstruction. The patient is admitted with small bowel obstruction. REVIEW OF SYSTEMS: CONSTITUTIONAL: The patient denies weight loss or weight gain. The patient denies fevers or chills. HEENT: The patient denies ear or throat pain. The patient denies headache. CARDIOVASCULAR: The patient denies palpitations or chest pain. CHEST: The patient denies wheeze or shortness of breath. ABDOMEN: The patient complains of nausea and vomiting as above. The patient complains of constipation as above. The patient denies diarrhea. GENITOURINARY: The patient denies dysuria or increased frequency urination. NEUROMUSCULAR: The patient denies seizures or generalized weakness. PAST MEDICAL HISTORY: Significant for: 1. Diverticulosis. 2. Osteoarthritis of the hip. 3. Meniere disease. PAST SURGICAL HISTORY: Significant for bilateral inguinal hernia repair x3 (twice on the right and once on the left). CURRENT MEDICATIONS: Multivitamin. ALLERGIES: No known drug allergies. 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 The patient denies tobacco use. The patient did smoke a couple of years in his 20s, however, has not smoked in 20 years. The patient admits to alcohol use socially. PHYSICAL EXAMINATION: VITAL SIGNS: Temperature 97.4 degrees, respirations 16, pulse 83, blood pressure 129/83. GENERAL: The patient is a well-developed, well-nourished white male, in no apparent distress. HEENT: Eyes, pupils equal and responsive to light and accommodation. Extraocular movements are intact. NECK: Supple. No lymphadenopathy. CHEST: Lungs are clear to auscultation bilaterally without wheezes or rales. CARDIOVASCULAR: Regular rhythm and rate. S1, S2 normal without murmurs, rubs, or gallops. ABDOMEN: Soft, distended with decreased bowel sounds. No evidence of hepatosplenomegaly. Currently, no rebound or guarding noted. There is some voluntary guarding to palpation. RECTAL/GENITAL: Deferred. EXTREMITIES: Negative for clubbing, cyanosis, or edema. NEUROLOGIC: Cranial nerves II through XII are grossly intact without focal deficits. Motor strength is 5/5 bilaterally. Deep tendon reflexes are 2+ plantar. LABORATORY STUDIES: WBC 15.8, hemoglobin 16.3, hematocrit 49.5, platelets 245,000. Sodium 129, potassium 2.6, chloride 94, CO2 37, BUN 57, creatinine 1.3, and glucose 131. A CT scan of the abdomen revealed a high-grade small bowel obstruction at the ileum. ASSESSMENT: This is a 56-year-old white male with: 1. Abdominal pain. 2. Nausea and vomiting. 3. High-grade small bowel obstruction. 4. Diverticulosis. 5. Hypokalemia. 6. Meniere disease. TREATMENT: 1. Abdominal pain/nausea/vomiting/high-grade small bowel obstruction. A Gastroenterology consultation has been obtained with Dr. Keyur Chaney. The patient currently has an NG tube in place. A General Surgery consultation has been obtained with Dr. Bob. We will follow recommendation of Surgery. The patient may require surgery if decompression with NG tube is not successful. 2. Diverticulosis. The patient has been placed empirically on intravenous Levaquin and Flagyl. We will follow recommendations of Gastroenterology and Surgery. 3. Hypokalemia. The patient is currently receiving potassium through intravenous line. 4. Meniere disease. Luis Guo M.D. DR: Jimenez JOB#: [id number] CC:
[2017-08-26 07:46] LABS: ALANINE AMINOTRANSFERASE 21 U/L (12-78); ALKALINE PHOSPHATASE 64 U/L (46-116); AMYLASE 60 U/L (25-115); ANION GAP 5 mmol/L (5-15); ASPARTATE AMINO TRANSFERASE 18 U/L (15-37); BILIRUBIN,TOTAL 0.7 MG/DL (0.2-1.0); BLOOD UREA NITROGEN 15 mg/dL (7-18); CALCIUM 7.4 MG/DL (8.5-10.1); CARBON DIOXIDE 32 MMOL/L (21-32); CHLORIDE 94 MMOL/L (98-107); CREATININE 0.8 MG/DL (0.55-1.30); SODIUM 131 MMOL/L (136-145)
[2017-08-26 07:50] LABS: BASOPHILS % (AUTO) 0.5 % (0.0-2.0); EOSINOPHILS % (AUTO) 0.4 % (0.0-3.0); HEMATOCRIT 41.7 % (42.0-52.0); HEMOGLOBIN 15.2 G/DL (14.2-18.0); MEAN CORPUSCULAR VOLUME 86 FL (80-99); MONOCYTES % (AUTO) 10.1 % (1.0-10.0); PLATELET COUNT 172 K/UL (150-450); RED BLOOD COUNT 4.83 M/UL (4.70-6.10); RED CELL DISTRIBUTION WIDTH 11.2 % (11.6-14.8)
[2017-08-26 07:52] VITALS: BP 117/72
[2017-08-26 08:01] LABS: POTASSIUM 2.3 MMOL/L (3.5-5.1)
[2017-08-26] MEDS: Pantoprazole Inj IV SCH (09:00)
[2017-08-26] MEDS: Heparin 5000 units/ml inj SUBQ SCH ×2 (09:00→21:05)
[2017-08-26] MEDS ORDERED: D5 1/2NS w/KCl 40meq 1000ml 1,000 ML IV SCH (10:00)
[2017-08-26] MEDS ORDERED: Potassium Chloride 40 MEQ in Sodium Chloride 500ML 550 ML IVPB ONE (11:00)
--- NOTE | 2017-08-26 11:19 | General Surgery Progress Note ---
General Surgery-Progress Note Subjective Symptoms: improved, BM Additional Comments Doing well. improving. pain improved. no n/v/f/c. NG tube initially with lots of output and now tending down. had 3 loose BM's last night. hungry. Objective Last 24 Hour Vital Signs Date Time Temp Pulse Resp B/P (MAP) Pulse Ox O2 Delivery O2 Flow Rate FiO2 08/26/17 07:52 97.7 80 20 117/72 95 97.7 08/26/17 00:00 97.9 78 18 124/79 93 Room Air 97.9 08/25/17 21:00 98.2 78 17 125/65 90 Room Air 98.2 08/25/17 16:20 98.4 87 20 119/72 95 98.4 08/25/17 11:44 98.0 82 20 134/68 95 98.0 I&O Intake and Output 08/25/17 08/26/17 19:00 07:00 Output Total 2400 ml 800 ml Balance -2400 ml -800 ml Output Gastric Drainage Total 2400 ml 800 ml # Voids 4 Drains: none Cardiovascular: RSR Respiratory: clear Abdomen: soft, flat, non-tender, other - minimal bowel sounds Extremities: no cyanosis Laboratory Tests Test 08/26/17 05:30 White Blood Count 9.0 K/UL (4.8-10.8) Red Blood Count 4.83 M/UL (4.70-6.10) Hemoglobin 15.2 G/DL (14.2-18.0) Hematocrit 41.7 % (42.0-52.0) L Mean Corpuscular Volume 86 FL (80-99) Mean Corpuscular Hemoglobin 31.4 PG (27.0-31.0) H Mean Corpuscular Hemoglobin Concent 36.4 G/DL (32.0-36.0) H Red Cell Distribution Width 11.2 % (11.6-14.8) L Platelet Count 172 K/UL (150-450) Mean Platelet Volume 9.6 FL (6.5-10.1) Neutrophils (%) (Auto) 82.0 % (45.0-75.0) H Lymphocytes (%) (Auto) 7.0 % (20.0-45.0) L Monocytes (%) (Auto) 10.1 % (1.0-10.0) H Eosinophils (%) (Auto) 0.4 % (0.0-3.0) Basophils (%) (Auto) 0.5 % (0.0-2.0) Activated Partial Thromboplast Time 26 SEC (23-33) Sodium Level 131 MMOL/L (136-145) L Potassium Level 2.3 MMOL/L (3.5-5.1) *L Chloride Level 94 MMOL/L (98-107) L Carbon Dioxide Level 32 MMOL/L (21-32) Anion Gap 5 mmol/L (5-15) Blood Urea Nitrogen 15 mg/dL (7-18) Creatinine 0.8 MG/DL (0.55-1.30) Estimat Glomerular Filtration Rate > 60 mL/min (>60) Glucose Level 93 MG/DL (74-106) Calcium Level 7.4 MG/DL (8.5-10.1) L Total Bilirubin 0.7 MG/DL (0.2-1.0) Aspartate Amino Transf (AST/SGOT) 18 U/L (15-37) Alanine Aminotransferase (ALT/SGPT) 21 U/L (12-78) Alkaline Phosphatase 64 U/L (46-116) Total Protein 6.0 G/DL (6.4-8.2) L Albumin 3.0 G/DL (3.4-5.0) L Globulin 3.0 g/dL Albumin/Globulin Ratio 1.0 (1.0-2.7) Amylase Level 60 U/L (25-115) Lipase 258 U/L (73-393) Plan Problems: (1) Small bowel obstruction Assessment & Plan: SBO. NG tube placed and 2.5L of contents evacuated initially. NG tube output now decreased abd soft, non tender, non distended. sbo likely from adhesions and seems to be resolving fortunately. exam benign. awaiting return of bowel function conservative management of sbo -replace electrolytes -NG tube clamp trial today. check in 4-6 hours for residual and call me with results -NPO -IV fluids -Ambulate and OOB Ervin Bob Aug 26, 2017 11:19
[2017-08-26 11:48] VITALS: BP 131/80
[2017-08-26] MEDS: D5 1/2NS w/KCl 40meq 1000ml 1,000 ML IV SCH ×2 (13:00→23:00)
--- NOTE | 2017-08-26 13:16 | General Progress Note ---
Assessment/Plan Problem List: (1) Small bowel obstruction ICD Codes: K56.609 - Unspecified intestinal obstruction, unspecified as to partial versus complete obstruction SNOMED: 219721489 (2) Leukocytosis ICD Codes: D72.829 - Elevated white blood cell count, unspecified SNOMED: 222830513, 912455412 (3) Dehydration ICD Codes: E86.0 - Dehydration SNOMED: 11982547 Assessment/Plan npo ivf NGT clamped fu surg recs Subjective ROS Limited/Unobtainable: Yes Allergies: Coded Allergies: No Known Allergies (Unverified , 08/25/17) Subjective wants to eat had few BM Objective Last 24 Hour Vital Signs Date Time Temp Pulse Resp B/P (MAP) Pulse Ox O2 Delivery O2 Flow Rate FiO2 08/26/17 11:48 97.9 78 20 131/80 94 97.9 08/26/17 07:52 97.7 80 20 117/72 95 97.7 08/26/17 00:00 97.9 78 18 124/79 93 Room Air 97.9 08/25/17 21:00 98.2 78 17 125/65 90 Room Air 98.2 08/25/17 16:20 98.4 87 20 119/72 95 98.4 Intake and Output 08/25/17 08/26/17 19:00 07:00 Output Total 2400 ml 800 ml Balance -2400 ml -800 ml Output Gastric Drainage Total 2400 ml 800 ml # Voids 4 Laboratory Tests 08/26/17 05:30: White Blood Count 9.0, Red Blood Count 4.83, Hemoglobin 15.2, Hematocrit 41.7L, Mean Corpuscular Volume 86, Mean Corpuscular Hemoglobin 31.4H, Mean Corpuscular Hemoglobin Concent 36.4H, Red Cell Distribution Width 11.2L, Platelet Count 172 , Mean Platelet Volume 9.6, Neutrophils (%) (Auto) 82.0H, Lymphocytes (%) (Auto ) 7.0L, Monocytes (%) (Auto) 10.1H, Eosinophils (%) (Auto) 0.4, Basophils (%) ( Auto) 0.5, Activated Partial Thromboplast Time 26, Sodium Level 131L, Potassium Level 2.3*L, Chloride Level 94L, Carbon Dioxide Level 32, Anion Gap 5, Blood Urea Nitrogen 15, Creatinine 0.8, Estimat Glomerular Filtration Rate > 60, Glucose Level 93, Calcium Level 7.4L, Total Bilirubin 0.7, Aspartate Amino Transf (AST/SGOT) 18, Alanine Aminotransferase (ALT/SGPT) 21, Alkaline Phosphatase 64, Total Protein 6.0L, Albumin 3.0L, Globulin 3.0, Albumin/ Globulin Ratio 1.0, Amylase Level 60, Lipase 258 Height (Feet): 5 Height (Inches): 11.00 Weight (Pounds): 185 General Appearance: no apparent distress EENT: normal ENT inspection Neck: supple Cardiovascular: normal rate Respiratory/Chest: decreased breath sounds Abdomen: soft, hypoactive bowel sounds Extremities: non-tender ABDON URBAN Aug 26, 2017 13:16
--- NOTE | 2017-08-26 15:08 | Pulmonology Progress Note ---
Assessment/Plan Problems: (1) Small bowel obstruction (2) Leukocytosis Assessment/Plan continue NG suction iv fluids Surgery f/u symptomatic treatment check electrolytes in am. Subjective Interval Events: ng tube in place Allergies: Coded Allergies: No Known Allergies (Unverified , 08/25/17) Objective Last 24 Hour Vital Signs Date Time Temp Pulse Resp B/P (MAP) Pulse Ox O2 Delivery O2 Flow Rate FiO2 08/26/17 11:48 97.9 78 20 131/80 94 97.9 08/26/17 07:52 97.7 80 20 117/72 95 97.7 08/26/17 00:00 97.9 78 18 124/79 93 Room Air 97.9 08/25/17 21:00 98.2 78 17 125/65 90 Room Air 98.2 08/25/17 16:20 98.4 87 20 119/72 95 98.4 Intake and Output 08/25/17 08/26/17 19:00 07:00 Output Total 2400 ml 800 ml Balance -2400 ml -800 ml Output Gastric Drainage Total 2400 ml 800 ml # Voids 4 Objective General Appearance: WD/WN Lines, tubes and drains: peripheral HEENT: normocephalic, atraumatic Neck: non-tender, normal alignment Respiratory/Chest: chest wall non-tender, lungs clear Breasts: no masses Cardiovascular/Chest: normal peripheral pulses Abdomen: normal bowel sounds, non tender Genitourinary/Rectal: normal genital exam Extremities: normal range of motion Skin Exam: normal pigmentation Laboratory Tests 08/26/17 05:30: White Blood Count 9.0, Red Blood Count 4.83, Hemoglobin 15.2, Hematocrit 41.7L, Mean Corpuscular Volume 86, Mean Corpuscular Hemoglobin 31.4H, Mean Corpuscular Hemoglobin Concent 36.4H, Red Cell Distribution Width 11.2L, Platelet Count 172 , Mean Platelet Volume 9.6, Neutrophils (%) (Auto) 82.0H, Lymphocytes (%) (Auto ) 7.0L, Monocytes (%) (Auto) 10.1H, Eosinophils (%) (Auto) 0.4, Basophils (%) ( Auto) 0.5, Activated Partial Thromboplast Time 26, Sodium Level 131L, Potassium Level 2.3*L, Chloride Level 94L, Carbon Dioxide Level 32, Anion Gap 5, Blood Urea Nitrogen 15, Creatinine 0.8, Estimat Glomerular Filtration Rate > 60, Glucose Level 93, Calcium Level 7.4L, Total Bilirubin 0.7, Aspartate Amino Transf (AST/SGOT) 18, Alanine Aminotransferase (ALT/SGPT) 21, Alkaline Phosphatase 64, Total Protein 6.0L, Albumin 3.0L, Globulin 3.0, Albumin/ Globulin Ratio 1.0, Amylase Level 60, Lipase 258 Current Medications Medications (Trade) Dose Ordered Sig/Sandi Route PRN Reason Start Time Stop Time Status Last Admin Dose Admin Acetaminophen (Tylenol) 650 mg Q4H PRN ORAL fever>100.5 08/25/17 07:30 09/24/17 07:29 Al Hydroxide/Mg Hydroxide (Mylanta II) 30 ml Q6H PRN ORAL dyspepsia 08/25/17 07:30 09/24/17 07:29 Dextrose (Dextrose 50%) 25 ml STAT PRN IV Hypoglycemia 08/25/17 07:15 09/24/17 07:14 Dextrose (Dextrose 50%) 50 ml STAT PRN IV Hypoglycemia 08/25/17 07:15 09/24/17 07:14 Dextrose/ Electrolytes 1,000 ml @ 100 mls/hr Q10H IV 08/26/17 13:00 09/25/17 12:59 08/26/17 13:00 Diphenhydramine HCl (Benadryl) 25 mg Q6H PRN ORAL Itching/Pruritis 08/25/17 07:30 09/24/17 07:29 Heparin Sodium (Porcine) (Heparin 5000 units/ml) 5,000 units EVERY 12 HOURS SUBQ 08/25/17 09:00 09/24/17 08:59 08/26/17 09:00 Levofloxacin 100 ml @ 100 mls/hr Q24H IVPB 08/25/17 18:00 09/01/17 17:59 08/25/17 18:19 Lorazepam (Ativan 2mg/ml 1ml) 1 mg Q4H PRN IV agitation 08/25/17 07:30 09/01/17 07:29 Metronidazole 100 ml @ 100 mls/hr Q8HR IVPB 08/25/17 20:00 09/01/17 19:59 08/26/17 04:59 Morphine Sulfate (Morphine Sulfate) 2 mg Q4H PRN IVP Severe Pain (Pain Scale 7-10) 08/25/17 07:30 09/01/17 07:29 Nitroglycerin (Ntg) 0.4 mg Q5M X 3 DOSES PRN SL Prn Chest Pain 08/25/17 07:30 09/24/17 07:29 Ondansetron HCl (Zofran) 4 mg Q6H PRN IVP Nausea & Vomiting 08/25/17 07:30 09/24/17 07:29 Pantoprazole (Protonix) 40 mg DAILY IV 08/25/17 09:00 09/24/17 08:59 08/26/17 09:00 Polyethylene Glycol (Miralax) 17 gm HSPRN PRN ORAL Constipation 08/25/17 21:00 09/24/17 20:59 Promethazine HCl (Phenergan) 25 mg EVERY 8 HOURS PRN IV refractory nausea 08/25/17 07:30 09/24/17 07:29 Temazepam (Restoril) 15 mg HSPRN PRN ORAL Insomnia 08/25/17 21:00 09/01/17 20:59 Jojo Cooper MD Aug 26, 2017 15:07
--- NOTE | 2017-08-26 15:20 | Internal Med Progress Note ---
Subjective Date of Service: Aug 26, 2017 Physician Name Luis Henderson Attending Physician Ken Resendez MD Current Medications Medications (Trade) Dose Ordered Sig/Sandi Route PRN Reason Start Time Stop Time Status Last Admin Dose Admin Acetaminophen (Tylenol) 650 mg Q4H PRN ORAL fever>100.5 08/25/17 07:30 09/24/17 07:29 Al Hydroxide/Mg Hydroxide (Mylanta II) 30 ml Q6H PRN ORAL dyspepsia 08/25/17 07:30 09/24/17 07:29 Dextrose (Dextrose 50%) 25 ml STAT PRN IV Hypoglycemia 08/25/17 07:15 09/24/17 07:14 Dextrose (Dextrose 50%) 50 ml STAT PRN IV Hypoglycemia 08/25/17 07:15 09/24/17 07:14 Dextrose/ Electrolytes 1,000 ml @ 100 mls/hr Q10H IV 08/26/17 13:00 09/25/17 12:59 08/26/17 13:00 Diphenhydramine HCl (Benadryl) 25 mg Q6H PRN ORAL Itching/Pruritis 08/25/17 07:30 09/24/17 07:29 Heparin Sodium (Porcine) (Heparin 5000 units/ml) 5,000 units EVERY 12 HOURS SUBQ 08/25/17 09:00 09/24/17 08:59 08/26/17 09:00 Levofloxacin 100 ml @ 100 mls/hr Q24H IVPB 08/25/17 18:00 09/01/17 17:59 08/25/17 18:19 Lorazepam (Ativan 2mg/ml 1ml) 1 mg Q4H PRN IV agitation 08/25/17 07:30 09/01/17 07:29 Metronidazole 100 ml @ 100 mls/hr Q8HR IVPB 08/25/17 20:00 09/01/17 19:59 08/26/17 04:59 Morphine Sulfate (Morphine Sulfate) 2 mg Q4H PRN IVP Severe Pain (Pain Scale 7-10) 08/25/17 07:30 09/01/17 07:29 Nitroglycerin (Ntg) 0.4 mg Q5M X 3 DOSES PRN SL Prn Chest Pain 08/25/17 07:30 09/24/17 07:29 Ondansetron HCl (Zofran) 4 mg Q6H PRN IVP Nausea & Vomiting 08/25/17 07:30 09/24/17 07:29 Pantoprazole (Protonix) 40 mg DAILY IV 08/25/17 09:00 09/24/17 08:59 08/26/17 09:00 Polyethylene Glycol (Miralax) 17 gm HSPRN PRN ORAL Constipation 08/25/17 21:00 09/24/17 20:59 Promethazine HCl (Phenergan) 25 mg EVERY 8 HOURS PRN IV refractory nausea 08/25/17 07:30 09/24/17 07:29 Temazepam (Restoril) 15 mg HSPRN PRN ORAL Insomnia 08/25/17 21:00 09/01/17 20:59 Allergies: Coded Allergies: No Known Allergies (Unverified , 08/25/17) ROS Limited/Unobtainable: No Constitutional: Reports: no symptoms HEENT: Reports: no symptoms Cardiovascular: Reports: no symptoms Respiratory: Reports: no symptoms Gastrointestinal/Abdominal: Reports: abdomen distended, abdominal pain, nausea Genitourinary: Reports: no symptoms Neurologic/Psychiatric: Reports: no symptoms Subjective 56 YO M admitted with nausea and vomiting. Now small bowel obstruction. Cover for Int Med-Dr Resendez Objective Last Vital Signs Date Time Temp Pulse Resp B/P (MAP) Pulse Ox O2 Delivery O2 Flow Rate FiO2 08/26/17 11:48 97.9 78 20 131/80 94 97.9 08/26/17 00:00 Room Air General Appearance: WD/WN, alert, mild distress EENT: PERRL/EOMI, normal ENT inspection, TMs normal Neck: non-tender, normal alignment, supple Cardiovascular: normal peripheral pulses, normal rate, regular rhythm, no gallop/murmur, no JVD Respiratory/Chest: chest wall non-tender, lungs clear, normal breath sounds, no respiratory distress, no accessory muscle use Abdomen: decreased bowel sounds, distended, guarding, tender Extremities: normal range of motion, non-tender 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, no motor/sensory deficits Skin: normal pigmentation, warm/dry Laboratory Tests Test 08/26/17 05:30 White Blood Count 9.0 K/UL (4.8-10.8) Red Blood Count 4.83 M/UL (4.70-6.10) Hemoglobin 15.2 G/DL (14.2-18.0) Hematocrit 41.7 % (42.0-52.0) L Mean Corpuscular Volume 86 FL (80-99) Mean Corpuscular Hemoglobin 31.4 PG (27.0-31.0) H Mean Corpuscular Hemoglobin Concent 36.4 G/DL (32.0-36.0) H Red Cell Distribution Width 11.2 % (11.6-14.8) L Platelet Count 172 K/UL (150-450) Mean Platelet Volume 9.6 FL (6.5-10.1) Neutrophils (%) (Auto) 82.0 % (45.0-75.0) H Lymphocytes (%) (Auto) 7.0 % (20.0-45.0) L Monocytes (%) (Auto) 10.1 % (1.0-10.0) H Eosinophils (%) (Auto) 0.4 % (0.0-3.0) Basophils (%) (Auto) 0.5 % (0.0-2.0) Activated Partial Thromboplast Time 26 SEC (23-33) Sodium Level 131 MMOL/L (136-145) L Potassium Level 2.3 MMOL/L (3.5-5.1) *L Chloride Level 94 MMOL/L (98-107) L Carbon Dioxide Level 32 MMOL/L (21-32) Anion Gap 5 mmol/L (5-15) Blood Urea Nitrogen 15 mg/dL (7-18) Creatinine 0.8 MG/DL (0.55-1.30) Estimat Glomerular Filtration Rate > 60 mL/min (>60) Glucose Level 93 MG/DL (74-106) Calcium Level 7.4 MG/DL (8.5-10.1) L Total Bilirubin 0.7 MG/DL (0.2-1.0) Aspartate Amino Transf (AST/SGOT) 18 U/L (15-37) Alanine Aminotransferase (ALT/SGPT) 21 U/L (12-78) Alkaline Phosphatase 64 U/L (46-116) Total Protein 6.0 G/DL (6.4-8.2) L Albumin 3.0 G/DL (3.4-5.0) L Globulin 3.0 g/dL Albumin/Globulin Ratio 1.0 (1.0-2.7) Amylase Level 60 U/L (25-115) Lipase 258 U/L (73-393) Intake and Output 08/25/17 08/26/17 19:00 07:00 Output Total 2400 ml 800 ml Balance -2400 ml -800 ml Output Gastric Drainage Total 2400 ml 800 ml # Voids 4 Assessment/Plan Problem List: (1) Nausea & vomiting (2) Diverticulosis Assessment & Plan: Continue flagyl and levaquin IV (3) Hypokalemia Assessment & Plan: Due to vomiting. Continue IV KCL replacement (4) Menieres disease (5) Small bowel obstruction Assessment & Plan: High grade. See surgery and GI note. Cont NG to Intermittent low wall suction Status: not improved LUIS HENDERSON Aug 26, 2017 15:20
[2017-08-26 15:43] VITALS: BP 131/68
[2017-08-26 20:59] VITALS: BP 132/93
[2017-08-27 00:19] VITALS: BP 130/87
[2017-08-27 04:15] VITALS: BP 131/66
[2017-08-27] MEDS: D5 1/2NS w/KCl 40meq 1000ml 1,000 ML IV SCH ×3 (06:12→22:23)
--- NOTE | 2017-08-27 07:30 | General Progress Note ---
Assessment/Plan Problem List: (1) Small bowel obstruction ICD Codes: K56.609 - Unspecified intestinal obstruction, unspecified as to partial versus complete obstruction SNOMED: 844463411 (2) Leukocytosis ICD Codes: D72.829 - Elevated white blood cell count, unspecified SNOMED: 705302956, 494207671 (3) Dehydration ICD Codes: E86.0 - Dehydration SNOMED: 64694866 Assessment/Plan npo ivf fu surg recs Subjective ROS Limited/Unobtainable: Yes Allergies: Coded Allergies: No Known Allergies (Unverified , 08/25/17) Subjective ngt is out passed gas had BM still npo Objective Last 24 Hour Vital Signs Date Time Temp Pulse Resp B/P (MAP) Pulse Ox O2 Delivery O2 Flow Rate FiO2 08/27/17 04:15 98.4 83 19 131/66 98 98.4 08/27/17 04:00 Room Air 08/27/17 00:19 98.2 81 18 130/87 95 98.2 08/27/17 00:00 Room Air 08/26/17 20:59 98.1 85 19 132/93 95 98.1 08/26/17 20:00 Room Air 08/26/17 15:43 98.2 80 20 131/68 93 98.2 08/26/17 11:48 97.9 78 20 131/80 94 97.9 08/26/17 07:52 97.7 80 20 117/72 95 97.7 Intake and Output 08/26/17 08/27/17 19:00 07:00 Intake Total 400 ml 1050 ml Output Total 500 ml Balance -100 ml 1050 ml IV Total 400 ml 1050 ml Output Gastric Drainage Total 500 ml # Voids 2 3 # Bowel Movements 3 Laboratory Tests 08/27/17 05:45: White Blood Count [Pending], Red Blood Count [Pending], Hemoglobin [Pending], Hematocrit [Pending], Mean Corpuscular Volume [Pending], Mean Corpuscular Hemoglobin [Pending], Mean Corpuscular Hemoglobin Concent [Pending], Red Cell Distribution Width [Pending], Platelet Count [Pending], Mean Platelet Volume [ Pending], Neutrophils (%) (Auto) [Pending], Lymphocytes (%) (Auto) [Pending], Monocytes (%) (Auto) [Pending], Eosinophils (%) (Auto) [Pending], Basophils (%) (Auto) [Pending], Sodium Level [Pending], Potassium Level [Pending], Chloride Level [Pending], Carbon Dioxide Level [Pending], Blood Urea Nitrogen [Pending], Creatinine [Pending], Estimat Glomerular Filtration Rate [Pending], Glucose Level [Pending], Calcium Level [Pending], Phosphorus Level [Pending], Magnesium Level [Pending], Total Bilirubin [Pending], Aspartate Amino Transf (AST/SGOT) [ Pending], Alanine Aminotransferase (ALT/SGPT) [Pending], Alkaline Phosphatase [ Pending], Total Protein [Pending], Albumin [Pending], Globulin [Pending] Height (Feet): 5 Height (Inches): 11.00 Weight (Pounds): 185 General Appearance: alert EENT: normal ENT inspection Neck: supple Cardiovascular: normal rate Respiratory/Chest: decreased breath sounds Abdomen: non tender, soft Extremities: non-tender ABDON URBAN Aug 27, 2017 07:30
[2017-08-27 07:48] LABS: BASOPHILS % (AUTO) 0.4 % (0.0-2.0); EOSINOPHILS % (AUTO) 1.5 % (0.0-3.0); HEMOGLOBIN 14.2 G/DL (14.2-18.0); LYMPHOCYTES % (AUTO) 12.7 % (20.0-45.0); MEAN CORPUSCULAR VOLUME 88 FL (80-99); MONOCYTES % (AUTO) 12.2 % (1.0-10.0); NEUTROPHILS % (AUTO) 73.1 % (45.0-75.0); PLATELET COUNT 160 K/UL (150-450); RED BLOOD COUNT 4.55 M/UL (4.70-6.10); RED CELL DISTRIBUTION WIDTH 11.5 % (11.6-14.8); WHITE BLOOD COUNT 6.1 K/UL (4.8-10.8)
[2017-08-27 07:54] LABS: ALANINE AMINOTRANSFERASE 18 U/L (12-78); ALBUMIN 2.8 G/DL (3.4-5.0); ALBUMIN/GLOBULIN RATIO 0.9 (1.0-2.7); ALKALINE PHOSPHATASE 59 U/L (46-116); ANION GAP 4 mmol/L (5-15); ASPARTATE AMINO TRANSFERASE 16 U/L (15-37); BILIRUBIN,TOTAL 0.5 MG/DL (0.2-1.0); BLOOD UREA NITROGEN 16 mg/dL (7-18); CALCIUM 7.5 MG/DL (8.5-10.1); CARBON DIOXIDE 32 MMOL/L (21-32); CHLORIDE 99 MMOL/L (98-107); CREATININE 0.8 MG/DL (0.55-1.30); PHOSPHORUS 1.5 MG/DL (2.5-4.9); SODIUM 135 MMOL/L (136-145)
[2017-08-27 08:00] VITALS: BP 133/74
[2017-08-27] MEDS: Pantoprazole Inj IV SCH (08:20)
[2017-08-27] MEDS: Heparin 5000 units/ml inj SUBQ SCH ×2 (08:21→21:07)
--- NOTE | 2017-08-27 11:18 | General Surgery Progress Note ---
General Surgery-Progress Note Subjective Symptoms: improved, pain absent, voiding well, passing flatus, BM Additional Comments no acute events. comfortable. no n/v/f/c. passing flatus. no pain Objective Last 24 Hour Vital Signs Date Time Temp Pulse Resp B/P (MAP) Pulse Ox O2 Delivery O2 Flow Rate FiO2 08/27/17 08:00 98.4 76 19 133/74 96 98.4 08/27/17 04:15 98.4 83 19 131/66 98 98.4 08/27/17 04:00 Room Air 08/27/17 00:19 98.2 81 18 130/87 95 98.2 08/27/17 00:00 Room Air 08/26/17 20:59 98.1 85 19 132/93 95 98.1 08/26/17 20:00 Room Air 08/26/17 15:43 98.2 80 20 131/68 93 98.2 08/26/17 11:48 97.9 78 20 131/80 94 97.9 I&O Intake and Output 08/26/17 08/27/17 19:00 07:00 Intake Total 400 ml 1050 ml Output Total 500 ml Balance -100 ml 1050 ml IV Total 400 ml 1050 ml Output Gastric Drainage Total 500 ml # Voids 2 3 # Bowel Movements 3 Cardiovascular: RSR Respiratory: clear Abdomen: soft, flat, non-tender, present bowel sounds Extremities: no edema, no tenderness, no cyanosis Laboratory Tests Test 08/27/17 05:45 White Blood Count 6.1 K/UL (4.8-10.8) Red Blood Count 4.55 M/UL (4.70-6.10) L Hemoglobin 14.2 G/DL (14.2-18.0) Hematocrit 40.0 % (42.0-52.0) L Mean Corpuscular Volume 88 FL (80-99) Mean Corpuscular Hemoglobin 31.1 PG (27.0-31.0) H Mean Corpuscular Hemoglobin Concent 35.4 G/DL (32.0-36.0) Red Cell Distribution Width 11.5 % (11.6-14.8) L Platelet Count 160 K/UL (150-450) Mean Platelet Volume 9.0 FL (6.5-10.1) Neutrophils (%) (Auto) 73.1 % (45.0-75.0) Lymphocytes (%) (Auto) 12.7 % (20.0-45.0) L Monocytes (%) (Auto) 12.2 % (1.0-10.0) H Eosinophils (%) (Auto) 1.5 % (0.0-3.0) Basophils (%) (Auto) 0.4 % (0.0-2.0) Sodium Level 135 MMOL/L (136-145) L Potassium Level 3.0 MMOL/L (3.5-5.1) L Chloride Level 99 MMOL/L (98-107) Carbon Dioxide Level 32 MMOL/L (21-32) Anion Gap 4 mmol/L (5-15) L Blood Urea Nitrogen 16 mg/dL (7-18) Creatinine 0.8 MG/DL (0.55-1.30) Estimat Glomerular Filtration Rate > 60 mL/min (>60) Glucose Level 99 MG/DL (74-106) Calcium Level 7.5 MG/DL (8.5-10.1) L Phosphorus Level 1.5 MG/DL (2.5-4.9) L Magnesium Level 2.4 MG/DL (1.8-2.4) Total Bilirubin 0.5 MG/DL (0.2-1.0) Aspartate Amino Transf (AST/SGOT) 16 U/L (15-37) Alanine Aminotransferase (ALT/SGPT) 18 U/L (12-78) Alkaline Phosphatase 59 U/L (46-116) Total Protein 5.8 G/DL (6.4-8.2) L Albumin 2.8 G/DL (3.4-5.0) L Globulin 3.0 g/dL Albumin/Globulin Ratio 0.9 (1.0-2.7) L Plan Problems: (1) Small bowel obstruction Assessment & Plan: SBO. NG tube placed and 2.5L of contents evacuated initially. NG tube out now given no output abd soft, non tender, non distended. bowel function. flatus. bowel sounds sbo likely from adhesions and seems to be resolving fortunately. exam benign. conservative management of sbo -replace electrolytes -start clear liquids -upper gi with small bowel tomorrow. patient with high grade sbo on ct which seems resolved but may only be partially resolved. need to ensure with contrast study -IV fluids -Ambulate and OOB Ervin Bob Aug 27, 2017 11:18
[2017-08-27] MEDS ORDERED: Potassium Chloride 40 MEQ in Sodium Chloride 500ML 550 ML IVPB ONE (11:30)
[2017-08-27 12:00] VITALS: BP 116/79
--- NOTE | 2017-08-27 14:19 | Pulmonology Progress Note ---
Assessment/Plan Problems: (1) Small bowel obstruction (2) Leukocytosis Assessment/Plan clear liquied iv fluids Surgery f/u symptomatic treatment check electrolytes in am. Subjective ROS Limited/Unobtainable: No Allergies: Coded Allergies: No Known Allergies (Unverified , 08/25/17) Objective Last 24 Hour Vital Signs Date Time Temp Pulse Resp B/P (MAP) Pulse Ox O2 Delivery O2 Flow Rate FiO2 08/27/17 12:00 98.4 77 20 116/79 95 98.4 08/27/17 08:00 98.4 76 19 133/74 96 98.4 08/27/17 04:15 98.4 83 19 131/66 98 98.4 08/27/17 04:00 Room Air 08/27/17 00:19 98.2 81 18 130/87 95 98.2 08/27/17 00:00 Room Air 08/26/17 20:59 98.1 85 19 132/93 95 98.1 08/26/17 20:00 Room Air 08/26/17 15:43 98.2 80 20 131/68 93 98.2 Intake and Output 08/26/17 08/27/17 19:00 07:00 Intake Total 400 ml 1150 ml Output Total 500 ml Balance -100 ml 1150 ml IV Total 400 ml 1150 ml Output Gastric Drainage Total 500 ml # Voids 2 3 # Bowel Movements 3 Objective General Appearance: WD/WN Lines, tubes and drains: peripheral HEENT: normocephalic, atraumatic Neck: non-tender, normal alignment Respiratory/Chest: chest wall non-tender, lungs clear Breasts: no masses Cardiovascular/Chest: normal peripheral pulses Abdomen: normal bowel sounds, non tender Genitourinary/Rectal: normal genital exam Extremities: normal range of motion Skin Exam: normal pigmentation Laboratory Tests 08/27/17 05:45: White Blood Count 6.1, Red Blood Count 4.55L, Hemoglobin 14.2, Hematocrit 40.0L , Mean Corpuscular Volume 88, Mean Corpuscular Hemoglobin 31.1H, Mean Corpuscular Hemoglobin Concent 35.4, Red Cell Distribution Width 11.5L, Platelet Count 160, Mean Platelet Volume 9.0, Neutrophils (%) (Auto) 73.1, Lymphocytes (%) (Auto) 12.7L, Monocytes (%) (Auto) 12.2H, Eosinophils (%) (Auto ) 1.5, Basophils (%) (Auto) 0.4, Sodium Level 135L, Potassium Level 3.0L, Chloride Level 99, Carbon Dioxide Level 32, Anion Gap 4L, Blood Urea Nitrogen 16 , Creatinine 0.8, Estimat Glomerular Filtration Rate > 60, Glucose Level 99, Calcium Level 7.5L, Phosphorus Level 1.5L, Magnesium Level 2.4, Total Bilirubin 0.5, Aspartate Amino Transf (AST/SGOT) 16, Alanine Aminotransferase (ALT/SGPT) 18, Alkaline Phosphatase 59, Total Protein 5.8L, Albumin 2.8L, Globulin 3.0, Albumin/Globulin Ratio 0.9L Current Medications Medications (Trade) Dose Ordered Sig/Sandi Route PRN Reason Start Time Stop Time Status Last Admin Dose Admin Acetaminophen (Tylenol) 650 mg Q4H PRN ORAL fever>100.5 08/25/17 07:30 09/24/17 07:29 Al Hydroxide/Mg Hydroxide (Mylanta II) 30 ml Q6H PRN ORAL dyspepsia 08/25/17 07:30 09/24/17 07:29 Dextrose (Dextrose 50%) 25 ml STAT PRN IV Hypoglycemia 08/25/17 07:15 09/24/17 07:14 Dextrose (Dextrose 50%) 50 ml STAT PRN IV Hypoglycemia 08/25/17 07:15 09/24/17 07:14 Dextrose/ Electrolytes 1,000 ml @ 100 mls/hr Q10H IV 08/26/17 13:00 09/25/17 12:59 08/27/17 06:12 Diphenhydramine HCl (Benadryl) 25 mg Q6H PRN ORAL Itching/Pruritis 08/25/17 07:30 09/24/17 07:29 Heparin Sodium (Porcine) (Heparin 5000 units/ml) 5,000 units EVERY 12 HOURS SUBQ 08/25/17 09:00 09/24/17 08:59 08/27/17 08:21 Levofloxacin 100 ml @ 100 mls/hr Q24H IVPB 08/26/17 21:00 09/02/17 20:59 08/26/17 21:03 Lorazepam (Ativan 2mg/ml 1ml) 1 mg Q4H PRN IV agitation 4/13/18 07:30 09/01/17 07:29 Metronidazole 100 ml @ 100 mls/hr Q8HR IVPB 08/25/17 20:00 09/01/17 19:59 08/27/17 13:27 Morphine Sulfate (Morphine Sulfate) 2 mg Q4H PRN IVP Severe Pain (Pain Scale 7-10) 08/25/17 07:30 09/01/17 07:29 Nitroglycerin (Ntg) 0.4 mg Q5M X 3 DOSES PRN SL Prn Chest Pain 08/25/17 07:30 09/24/17 07:29 Ondansetron HCl (Zofran) 4 mg Q6H PRN IVP Nausea & Vomiting 08/25/17 07:30 09/24/17 07:29 Pantoprazole (Protonix) 40 mg DAILY IV 08/25/17 09:00 09/24/17 08:59 08/27/17 08:20 Polyethylene Glycol (Miralax) 17 gm HSPRN PRN ORAL Constipation 08/25/17 21:00 09/24/17 20:59 Potassium Chloride 40 meq/ Sodium Chloride 570 ml @ 142.5 mls/ hr ONCE ONCE IVPB 08/27/17 11:30 08/27/17 15:29 08/27/17 11:42 Promethazine HCl (Phenergan) 25 mg EVERY 8 HOURS PRN IV refractory nausea 08/25/17 07:30 09/24/17 07:29 Temazepam (Restoril) 15 mg HSPRN PRN ORAL Insomnia 08/25/17 21:00 09/01/17 20:59 Jojo Cooper MD Aug 27, 2017 14:19
--- NOTE | 2017-08-27 16:30 | Internal Med Progress Note ---
Subjective Date of Service: Aug 27, 2017 Physician Name Robe Henderson Attending Physician Ken Resendez MD Current Medications Medications (Trade) Dose Ordered Sig/Sandi Route PRN Reason Start Time Stop Time Status Last Admin Dose Admin Acetaminophen (Tylenol) 650 mg Q4H PRN ORAL fever>100.5 08/25/17 07:30 09/24/17 07:29 Al Hydroxide/Mg Hydroxide (Mylanta II) 30 ml Q6H PRN ORAL dyspepsia 08/25/17 07:30 09/24/17 07:29 Dextrose (Dextrose 50%) 25 ml STAT PRN IV Hypoglycemia 08/25/17 07:15 09/24/17 07:14 Dextrose (Dextrose 50%) 50 ml STAT PRN IV Hypoglycemia 08/25/17 07:15 09/24/17 07:14 Dextrose/ Electrolytes 1,000 ml @ 100 mls/hr Q10H IV 08/26/17 13:00 09/25/17 12:59 08/27/17 06:12 Diphenhydramine HCl (Benadryl) 25 mg Q6H PRN ORAL Itching/Pruritis 08/25/17 07:30 09/24/17 07:29 Heparin Sodium (Porcine) (Heparin 5000 units/ml) 5,000 units EVERY 12 HOURS SUBQ 08/25/17 09:00 09/24/17 08:59 08/27/17 08:21 Levofloxacin 100 ml @ 100 mls/hr Q24H IVPB 08/26/17 21:00 09/02/17 20:59 08/26/17 21:03 Lorazepam (Ativan 2mg/ml 1ml) 1 mg Q4H PRN IV agitation 08/25/17 07:30 09/01/17 07:29 Metronidazole 100 ml @ 100 mls/hr Q8HR IVPB 08/25/17 20:00 09/01/17 19:59 08/27/17 13:27 Morphine Sulfate (Morphine Sulfate) 2 mg Q4H PRN IVP Severe Pain (Pain Scale 7-10) 08/25/17 07:30 09/01/17 07:29 Nitroglycerin (Ntg) 0.4 mg Q5M X 3 DOSES PRN SL Prn Chest Pain 08/25/17 07:30 09/24/17 07:29 Ondansetron HCl (Zofran) 4 mg Q6H PRN IVP Nausea & Vomiting 08/25/17 07:30 09/24/17 07:29 Pantoprazole (Protonix) 40 mg DAILY IV 08/25/17 09:00 09/24/17 08:59 08/27/17 08:20 Polyethylene Glycol (Miralax) 17 gm HSPRN PRN ORAL Constipation 08/25/17 21:00 09/24/17 20:59 Promethazine HCl (Phenergan) 25 mg EVERY 8 HOURS PRN IV refractory nausea 08/25/17 07:30 09/24/17 07:29 Temazepam (Restoril) 15 mg HSPRN PRN ORAL Insomnia 08/25/17 21:00 09/01/17 20:59 Allergies: Coded Allergies: No Known Allergies (Unverified , 08/25/17) ROS Limited/Unobtainable: No Constitutional: Reports: no symptoms HEENT: Reports: no symptoms Cardiovascular: Reports: no symptoms Respiratory: Reports: no symptoms Gastrointestinal/Abdominal: Reports: no symptoms Genitourinary: Reports: no symptoms Neurologic/Psychiatric: Reports: no symptoms Subjective 56 YO M admitted with nausea and vomiting. Now small bowel obstruction. Cover for Int Jerry-Dr Resendez. NG tube discontinued 08/26/17 pm. Tolerating PO Objective Last Vital Signs Date Time Temp Pulse Resp B/P (MAP) Pulse Ox O2 Delivery O2 Flow Rate FiO2 08/27/17 12:00 98.4 77 20 116/79 95 98.4 08/27/17 04:00 Room Air Laboratory Tests Test 08/27/17 05:45 White Blood Count 6.1 K/UL (4.8-10.8) Red Blood Count 4.55 M/UL (4.70-6.10) L Hemoglobin 14.2 G/DL (14.2-18.0) Hematocrit 40.0 % (42.0-52.0) L Mean Corpuscular Volume 88 FL (80-99) Mean Corpuscular Hemoglobin 31.1 PG (27.0-31.0) H Mean Corpuscular Hemoglobin Concent 35.4 G/DL (32.0-36.0) Red Cell Distribution Width 11.5 % (11.6-14.8) L Platelet Count 160 K/UL (150-450) Mean Platelet Volume 9.0 FL (6.5-10.1) Neutrophils (%) (Auto) 73.1 % (45.0-75.0) Lymphocytes (%) (Auto) 12.7 % (20.0-45.0) L Monocytes (%) (Auto) 12.2 % (1.0-10.0) H Eosinophils (%) (Auto) 1.5 % (0.0-3.0) Basophils (%) (Auto) 0.4 % (0.0-2.0) Sodium Level 135 MMOL/L (136-145) L Potassium Level 3.0 MMOL/L (3.5-5.1) L Chloride Level 99 MMOL/L (98-107) Carbon Dioxide Level 32 MMOL/L (21-32) Anion Gap 4 mmol/L (5-15) L Blood Urea Nitrogen 16 mg/dL (7-18) Creatinine 0.8 MG/DL (0.55-1.30) Estimat Glomerular Filtration Rate > 60 mL/min (>60) Glucose Level 99 MG/DL (74-106) Calcium Level 7.5 MG/DL (8.5-10.1) L Phosphorus Level 1.5 MG/DL (2.5-4.9) L Magnesium Level 2.4 MG/DL (1.8-2.4) Total Bilirubin 0.5 MG/DL (0.2-1.0) Aspartate Amino Transf (AST/SGOT) 16 U/L (15-37) Alanine Aminotransferase (ALT/SGPT) 18 U/L (12-78) Alkaline Phosphatase 59 U/L (46-116) Total Protein 5.8 G/DL (6.4-8.2) L Albumin 2.8 G/DL (3.4-5.0) L Globulin 3.0 g/dL Albumin/Globulin Ratio 0.9 (1.0-2.7) L Intake and Output 08/26/17 08/27/17 19:00 07:00 Intake Total 400 ml 1150 ml Output Total 500 ml Balance -100 ml 1150 ml IV Total 400 ml 1150 ml Output Gastric Drainage Total 500 ml # Voids 2 3 # Bowel Movements 3 Objective General Appearance: WD/WN, alert, mild distress EENT: PERRL/EOMI, normal ENT inspection, TMs normal Neck: non-tender, normal alignment, supple Cardiovascular: normal peripheral pulses, normal rate, regular rhythm, no gallop/murmur, no JVD Respiratory/Chest: chest wall non-tender, lungs clear, normal breath sounds, no respiratory distress, no accessory muscle use Abdomen: decreased bowel sounds, distended, guarding, tender Extremities: normal range of motion, non-tender 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 Continue IV KCL replacement (4) Menieres disease (5) Small bowel obstruction Assessment & Plan: High grade. See surgery and GI note. NGT D/C 08/26/18 pm. Tolerating PO Status: tolerating diet ROBE HENDERSON Aug 27, 2017 16:30
[2017-08-27 20:00] VITALS: BP 126/73
[2017-08-28] VITALS: BP 127/76
[2017-08-28] MEDS: D5 1/2NS w/KCl 40meq 1000ml 1,000 ML IV SCH (05:00)
[2017-08-28 07:33] LABS: ALANINE AMINOTRANSFERASE 23 U/L (12-78); ALBUMIN/GLOBULIN RATIO 0.9 (1.0-2.7); ALKALINE PHOSPHATASE 62 U/L (46-116); ANION GAP 5 mmol/L (5-15); ASPARTATE AMINO TRANSFERASE 18 U/L (15-37); BILIRUBIN,TOTAL 0.4 MG/DL (0.2-1.0); BLOOD UREA NITROGEN 7 mg/dL (7-18); CARBON DIOXIDE 29 MMOL/L (21-32); CHLORIDE 101 MMOL/L (98-107); CREATININE 0.8 MG/DL (0.55-1.30); POTASSIUM 3.2 MMOL/L (3.5-5.1); SODIUM 135 MMOL/L (136-145)
[2017-08-28 07:40] LABS: BASOPHILS % (AUTO) 0.9 % (0.0-2.0); EOSINOPHILS % (AUTO) 1.8 % (0.0-3.0); HEMATOCRIT 42.8 % (42.0-52.0); HEMOGLOBIN 15.3 G/DL (14.2-18.0); MEAN CORPUSCULAR VOLUME 88 FL (80-99); NEUTROPHILS % (AUTO) 71.4 % (45.0-75.0); PLATELET COUNT 146 K/UL (150-450); RED BLOOD COUNT 4.85 M/UL (4.70-6.10); RED CELL DISTRIBUTION WIDTH 11.8 % (11.6-14.8); WHITE BLOOD COUNT 6.9 K/UL (4.8-10.8)
[2017-08-28 07:51] LABS: PHOSPHORUS 1.7 MG/DL (2.5-4.9)
[2017-08-28 07:56] VITALS: BP 118/74
[2017-08-28] MEDS: Heparin 5000 units/ml inj SUBQ SCH (09:00)
[2017-08-28] MEDS: Pantoprazole Inj IV SCH (09:14)
--- NOTE | 2017-08-28 10:17 | GI Progress Note ---
Assessment/Plan Problems: (1) Nausea & vomiting ICD Codes: R11.2 - Nausea with vomiting, unspecified SNOMED: 45364525 (2) Diverticulosis ICD Codes: K57.90 - Diverticulosis of intestine, part unspecified, without perforation or abscess without bleeding SNOMED: 97362425 (3) Small bowel obstruction ICD Codes: K56.609 - Unspecified intestinal obstruction, unspecified as to partial versus complete obstruction SNOMED: 487270125 (4) Dehydration ICD Codes: E86.0 - Dehydration SNOMED: 86744595 Status: progressing Status Narrative Discussed with Dr. Chaney. Assessment/Plan fu surgical recs >>sbo likely from adhesions and seems to be resolving fortunately. exam benign. conservative management of sbo -replace electrolytes -start clear liquids -upper gi with small bowel tomorrow. patient with high grade sbo on ct which seems resolved but may only be partially resolved. need to ensure with contrast study -IV fluids -Ambulate and OOB fu labs Subjective Subjective ngt is out passed gas had BM on clears Objective Last 24 Hour Vital Signs Date Time Temp Pulse Resp B/P (MAP) Pulse Ox O2 Delivery O2 Flow Rate FiO2 08/28/17 07:56 97.9 72 18 118/74 93 Room Air 97.9 08/28/17 00:00 Room Air 08/28/17 00:00 98.1 69 20 127/76 94 Room Air 98.1 08/27/17 20:00 98.2 73 18 126/73 94 Room Air 98.2 08/27/17 20:00 Room Air 08/27/17 12:00 98.4 77 20 116/79 95 98.4 Intake and Output 08/27/17 08/28/17 19:00 07:00 Intake Total 1240 ml 1415 ml Balance 1240 ml 1415 ml Intake Oral 540 ml 240 ml IV Total 700 ml 1175 ml # Voids 4 2 # Bowel Movements 2 Laboratory Tests Test 08/28/17 05:55 White Blood Count 6.9 K/UL (4.8-10.8) Red Blood Count 4.85 M/UL (4.70-6.10) Hemoglobin 15.3 G/DL (14.2-18.0) Hematocrit 42.8 % (42.0-52.0) Mean Corpuscular Volume 88 FL (80-99) Mean Corpuscular Hemoglobin 31.6 PG (27.0-31.0) H Mean Corpuscular Hemoglobin Concent 35.8 G/DL (32.0-36.0) Red Cell Distribution Width 11.8 % (11.6-14.8) Platelet Count 146 K/UL (150-450) L Mean Platelet Volume 9.2 FL (6.5-10.1) Neutrophils (%) (Auto) 71.4 % (45.0-75.0) Lymphocytes (%) (Auto) 16.0 % (20.0-45.0) L Monocytes (%) (Auto) 10.0 % (1.0-10.0) Eosinophils (%) (Auto) 1.8 % (0.0-3.0) Basophils (%) (Auto) 0.9 % (0.0-2.0) Sodium Level 135 MMOL/L (136-145) L Potassium Level 3.2 MMOL/L (3.5-5.1) L Chloride Level 101 MMOL/L (98-107) Carbon Dioxide Level 29 MMOL/L (21-32) Anion Gap 5 mmol/L (5-15) Blood Urea Nitrogen 7 mg/dL (7-18) Creatinine 0.8 MG/DL (0.55-1.30) Estimat Glomerular Filtration Rate > 60 mL/min (>60) Glucose Level 99 MG/DL (74-106) Calcium Level 8.0 MG/DL (8.5-10.1) L Phosphorus Level 1.7 MG/DL (2.5-4.9) L Magnesium Level 2.0 MG/DL (1.8-2.4) Total Bilirubin 0.4 MG/DL (0.2-1.0) Aspartate Amino Transf (AST/SGOT) 18 U/L (15-37) Alanine Aminotransferase (ALT/SGPT) 23 U/L (12-78) Alkaline Phosphatase 62 U/L (46-116) Total Protein 6.2 G/DL (6.4-8.2) L Albumin 3.0 G/DL (3.4-5.0) L Globulin 3.2 g/dL Albumin/Globulin Ratio 0.9 (1.0-2.7) L Microbiology Date/Time Source Procedure Growth Status 08/27/17 18:00 Stool Clostridium difficile Toxin Assay - Final Complete Height (Feet): 5 Height (Inches): 11.00 Weight (Pounds): 185 General Appearance: WD/WN, no apparent distress, alert Cardiovascular: normal rate Respiratory/Chest: normal breath sounds, no respiratory distress Abdominal Exam: normal bowel sounds, non tender, soft Extremities: normal range of motion, non-tender Alis Martinez N.P. Aug 28, 2017 10:17
[2017-08-28 11:58] VITALS: BP 112/77
--- NOTE | 2017-08-28 12:07 | Internal Med Progress Note ---
Subjective Date of Service: Aug 28, 2017 Physician Name Robe Guo Attending Physician Ken Resendez MD Current Medications Medications (Trade) Dose Ordered Sig/Sandi Route PRN Reason Start Time Stop Time Status Last Admin Dose Admin Acetaminophen (Tylenol) 650 mg Q4H PRN ORAL fever>100.5 08/25/17 07:30 09/24/17 07:29 Al Hydroxide/Mg Hydroxide (Mylanta II) 30 ml Q6H PRN ORAL dyspepsia 08/25/17 07:30 09/24/17 07:29 Dextrose (Dextrose 50%) 25 ml STAT PRN IV Hypoglycemia 08/25/17 07:15 09/24/17 07:14 Dextrose (Dextrose 50%) 50 ml STAT PRN IV Hypoglycemia 08/25/17 07:15 09/24/17 07:14 Dextrose/ Electrolytes 1,000 ml @ 100 mls/hr Q10H IV 08/26/17 13:00 09/25/17 12:59 08/27/17 22:23 Diphenhydramine HCl (Benadryl) 25 mg Q6H PRN ORAL Itching/Pruritis 08/25/17 07:30 09/24/17 07:29 Heparin Sodium (Porcine) (Heparin 5000 units/ml) 5,000 units EVERY 12 HOURS SUBQ 08/25/17 09:00 09/24/17 08:59 08/27/17 21:07 Levofloxacin 100 ml @ 100 mls/hr Q24H IVPB 08/26/17 21:00 09/02/17 20:59 08/27/17 21:01 Lorazepam (Ativan 2mg/ml 1ml) 1 mg Q4H PRN IV agitation 08/25/17 07:30 09/01/17 07:29 Metronidazole 100 ml @ 100 mls/hr Q8HR IVPB 08/25/17 20:00 09/01/17 19:59 08/28/17 05:43 Morphine Sulfate (Morphine Sulfate) 2 mg Q4H PRN IVP Severe Pain (Pain Scale 7-10) 08/25/17 07:30 09/01/17 07:29 Nitroglycerin (Ntg) 0.4 mg Q5M X 3 DOSES PRN SL Prn Chest Pain 08/25/17 07:30 09/24/17 07:29 Ondansetron HCl (Zofran) 4 mg Q6H PRN IVP Nausea & Vomiting 08/25/17 07:30 09/24/17 07:29 Pantoprazole (Protonix) 40 mg DAILY IV 08/25/17 09:00 09/24/17 08:59 08/28/17 09:14 Polyethylene Glycol (Miralax) 17 gm HSPRN PRN ORAL Constipation 08/25/17 21:00 09/24/17 20:59 Promethazine HCl (Phenergan) 25 mg EVERY 8 HOURS PRN IV refractory nausea 08/25/17 07:30 09/24/17 07:29 Temazepam (Restoril) 15 mg HSPRN PRN ORAL Insomnia 08/25/17 21:00 09/01/17 20:59 Allergies: Coded Allergies: No Known Allergies (Unverified , 08/25/17) ROS Limited/Unobtainable: No Constitutional: Reports: no symptoms HEENT: Reports: no symptoms Cardiovascular: Reports: no symptoms Respiratory: Reports: no symptoms Gastrointestinal/Abdominal: Reports: no symptoms Genitourinary: Reports: no symptoms Neurologic/Psychiatric: Reports: no symptoms Subjective 56 YO M admitted with nausea and vomiting. Now small bowel obstruction. Cover for Int Jerry-Dr Resendez. NG tube discontinued 08/26/17 pm. Tolerating PO Objective Last Vital Signs Date Time Temp Pulse Resp B/P (MAP) Pulse Ox O2 Delivery O2 Flow Rate FiO2 08/28/17 11:58 98.2 67 18 112/77 98 Room Air 98.2 Laboratory Tests Test 08/28/17 05:55 White Blood Count 6.9 K/UL (4.8-10.8) Red Blood Count 4.85 M/UL (4.70-6.10) Hemoglobin 15.3 G/DL (14.2-18.0) Hematocrit 42.8 % (42.0-52.0) Mean Corpuscular Volume 88 FL (80-99) Mean Corpuscular Hemoglobin 31.6 PG (27.0-31.0) H Mean Corpuscular Hemoglobin Concent 35.8 G/DL (32.0-36.0) Red Cell Distribution Width 11.8 % (11.6-14.8) Platelet Count 146 K/UL (150-450) L Mean Platelet Volume 9.2 FL (6.5-10.1) Neutrophils (%) (Auto) 71.4 % (45.0-75.0) Lymphocytes (%) (Auto) 16.0 % (20.0-45.0) L Monocytes (%) (Auto) 10.0 % (1.0-10.0) Eosinophils (%) (Auto) 1.8 % (0.0-3.0) Basophils (%) (Auto) 0.9 % (0.0-2.0) Sodium Level 135 MMOL/L (136-145) L Potassium Level 3.2 MMOL/L (3.5-5.1) L Chloride Level 101 MMOL/L (98-107) Carbon Dioxide Level 29 MMOL/L (21-32) Anion Gap 5 mmol/L (5-15) Blood Urea Nitrogen 7 mg/dL (7-18) Creatinine 0.8 MG/DL (0.55-1.30) Estimat Glomerular Filtration Rate > 60 mL/min (>60) Glucose Level 99 MG/DL (74-106) Calcium Level 8.0 MG/DL (8.5-10.1) L Phosphorus Level 1.7 MG/DL (2.5-4.9) L Magnesium Level 2.0 MG/DL (1.8-2.4) Total Bilirubin 0.4 MG/DL (0.2-1.0) Aspartate Amino Transf (AST/SGOT) 18 U/L (15-37) Alanine Aminotransferase (ALT/SGPT) 23 U/L (12-78) Alkaline Phosphatase 62 U/L (46-116) Total Protein 6.2 G/DL (6.4-8.2) L Albumin 3.0 G/DL (3.4-5.0) L Globulin 3.2 g/dL Albumin/Globulin Ratio 0.9 (1.0-2.7) L Microbiology Date/Time Source Procedure Growth Status 08/27/17 18:00 Stool Clostridium difficile Toxin Assay - Final Complete Intake and Output 08/27/17 08/28/17 19:00 07:00 Intake Total 1240 ml 1415 ml Balance 1240 ml 1415 ml Intake Oral 540 ml 240 ml IV Total 700 ml 1175 ml # Voids 4 2 # Bowel Movements 2 Objective General Appearance: WD/WN, alert, mild distress EENT: PERRL/EOMI, normal ENT inspection, TMs normal Neck: non-tender, normal alignment, supple Cardiovascular: normal peripheral pulses, normal rate, regular rhythm, no gallop/murmur, no JVD Respiratory/Chest: chest wall non-tender, lungs clear, normal breath sounds, no respiratory distress, no accessory muscle use Abdomen: decreased bowel sounds, distended, guarding, tender Extremities: normal range of motion, non-tender 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 Continue IV KCL replacement (4) Menieres disease (5) Small bowel obstruction Assessment & Plan: High grade. See surgery and GI note. NGT D/C 14/18 pm. Tolerating PO Status: stable Assessment/Plan Discharge home today-Follow up PCP-ROBE Sethi Aug 28, 2017 12:07
--- NOTE | 2017-08-30 13:24 | Discharge Summary ---
Discharge Summary Hospital Course Date of Admission Aug 25, 2017 at 06:06 Date of Discharge Aug 28, 2017 at 14:10 Admitting Diagnosis small bowel obstruction HPI 56-year-old male presents ED for evaluation. complaining of abdominal pain nausea and vomiting 3 days. Feels like his diverticulitis. States he feels "obstructed". Unable to have bowel movement. Pain is sharp, 5 out of 10, nonradiating. Denies fevers or chills. Denies chest pain or shortness of breath. No other aggravating relieving factors. Denies any other associated symptoms (1) Dehydration (2) Leukocytosis (3) Small bowel obstruction Consultations Surgery >> Ervin Bob MD Gastroenterology >> Rabia Chaney MD Pulmonary >> Jojo Cooper MD Procedures Procedure: CT Abdomen Pelvis w/Contrast Clinical Indication: Abdominal pain 3 days Impression: Positive for high-grade small bowel obstruction, transition point at the level of the ileum in the right pelvis. The appearance is somewhat suggestive of adhesions. Diverticulosis. No evidence of diverticulitis Evidence of mild hepatic steatosis Nonobstructive right upper pole renal calculus Centimeters low-attenuation liver lesions, too small to characterize, most likely benign simple cysts or bile hamartomas. No further follow-up necessary Other findings as noted, including basilar atelectasis, degenerative changes of the right hip Procedure: US ABD Complete Indication: Abdominal pain, nausea, vomiting Impression: Essentially unremarkable exam. Negative for gallstones, dilated ducts, or other significant abnormality Incidental finding of bilateral renal cysts Hospital Course 56M hx of diverticulitis presented with abdominal pain, nausea, emesis for few days believed it to be related to diverticulitis and did not seek medical attention at first until pain, nausea, and emesis worsening. Came to ED for evaluation and noted to have obstruction on CT. History of two prior lap CALLY hernia repairs. The patient was diagnosed with high grade SBO, seen by Surgery and Gastroenterology. Per surgical, sbo likely from adhesions and seems to be resolving fortunately. Return of bowel function will monitor clinically. if worse will need to go to OR if improved will start diet. NG tube placed and 2.5L of contents evacuated. patient felt significantly better soon after. later in afternoon began to have flatus and multiple loose bm's. abd now soft, non tender, non distended. Electrolytes replaced. Diet was advanced as tolerated. Plan for UG with small bowel r/o high grade sbo on ct which seems resolved but may only be partially resolved. need to ensure with contrast study. SBO fortunately slowly resolved on its own. Patient able to tolerate diet with no vomiting. Ambulation with minimal amounts of pain. Patient was stable for discharge. Discharge Medications Medication Profile: No Active Prescriptions or Reported Meds Discharge Condition Upon Discharge: stable Discharge Disposition Patient was discharged to Home (01) Discharge Diagnoses: (1) SBO (small bowel obstruction) (2) Nausea & vomiting (3) Dehydration Discharge Instructions Discharge Instructions Special Instructions NURSE NOTES: patient discharge to home,patient tolerated soft diet for lunch,,no complaints of abdominal pain,no complaints of Nausea or vomiting.IV removed,discharge instructions given,patient friend here to take patient home,patient has personal belongings.Patient accompany down stairs to private vehicle. Alis Martinez N.P. Aug 30, 2017 13:24
== END 2017-08-28 14:10 | disposition home or self-care (01) | DRG 390 ==
LOC: EDBD 01:04 → EMR 01:34 → 4W 06:06 → EDBEDREQ 06:23
DX: K56.609 Unspecified intestinal obstruction, unspecified as to partial versus complete obstruction (principal); E86.0 Dehydration; E87.6 Hypokalemia; K57.90 Diverticulosis of intestine, part unspecified, without perforation or abscess without bleeding; H81.09 Meniere's disease, unspecified ear; M16.10 Unilateral primary osteoarthritis, unspecified hip
CPT/HCPCS: 36415; 72192; 74177; 76700; 80053; 81003; 82150; 82248; 82962; 83690; 83735; 84100; 85025; 85730; 87324; 99285; J2405; J8499

== ENCOUNTER 2017-09-02 17:58 | Inpatient (IN) | payer OTHER ==
[~2017-09-02] VITALS: Ht 180.3 cm; Wt 81.6 kg
[2017-09-02 18:10] VITALS: BP 114/78
[2017-09-02] MEDS ORDERED: DiphenhydrAMINE 50mg/ml Inj IVP ONE (18:30)
[2017-09-02] MEDS ORDERED: HYDROmorphone 1mg/ml Carpuject IVP ONE (18:30)
--- NOTE | 2017-09-02 18:48 | Emergency Room Report ---
History of Present Illness General Chief Complaint: Abdominal Pain Source: Patient, Medical Record Present Illness HPI Patient has a history of laparoscopic hernia repair. Patient was recently admitted for small bowel obstruction. No surgical intervention was performed. Patient was discharge because a spontaneously resolved. Patient unfortunately returns with similar symptoms of abdominal pain nausea vomiting. He denies any fever chest pain shortness of breath. Symptoms noted to be severe and he feels that is consistent with his prior history of small bowel traction. He states that he is not passing gas. Symptoms noted to be severe.No other modifying factors. No other associated signs and symptoms. No other complaints were noted. Allergies: Coded Allergies: No Known Allergies (Unverified , 08/25/17) Patient History Past Medical History: none PMH Narrative small bowel obstruction Past Surgical History: other - laparoscopic hernia repai Pertinent Family History: none Social History: Denies: smoking, alcohol use, drug use Reviewed Nursing Documentation: PMH: Agreed; PSxH: Agreed Nursing Documentation-PMH Hx Cardiac Problems: No Hx Cancer: Yes - skin Hx Gastrointestinal Problems: Yes Hx Neurological Problems: No Review of Systems All Other Systems: negative except mentioned in HPI Physical Exam Vital Signs Date Time Temp Pulse Resp B/P (MAP) Pulse Ox O2 Delivery O2 Flow Rate FiO2 09/02/17 18:03 98.1 114 18 114/78 92 Room Air 98.1 Sp02 EP Interpretation: reviewed, normal General Appearance: normal inspection, well appearing, no apparent distress, alert Head: atraumatic Eyes: bilateral eye normal inspection ENT: normal ENT inspection, hearing grossly normal, normal voice Neck: normal inspection, full range of motion, supple, no bony tend Respiratory: normal inspection, lungs clear, normal breath sounds, no respiratory distress, no retraction, no wheezing Cardiovascular #1: regular rate, rhythm, no edema Gastrointestinal: normal inspection, soft, no guarding, no hernia, tenderness - Diffusely Genitourinary: no CVA tenderness Musculoskeletal: normal inspection, back normal, normal range of motion Neurologic: normal inspection, alert, responsive, speech normal Psychiatric: normal inspection, judgement/insight normal, mood/affect normal Skin: normal inspection, normal color, no rash Medical Decision Making Diagnostic Impression: Primary Impression: SBO (small bowel obstruction) Additional Impression: Nausea & vomiting ER Course Patient presents emergency department today complaining of acute onset of abdominal pain. Differential considerations include pancreatitis, cholecystitis , gastritis, gastritis, small bowel surgeon just name a few.Given the severity of the patient's presentation I felt this is a highly complex patient. This patient required extensive workup. Patient's laboratory workup was not impressive. Patient's x-rays however confirmed the presence of small bowel obstruction. Patient will require admission. NG tube was placed. Patient apparently is capitated to [place]. Therefore we'll transfer once the bed is available. Labs Test 09/02/17 18:30 09/02/17 19:38 White Blood Count 10.5 K/UL (4.8-10.8) Red Blood Count 5.10 M/UL (4.70-6.10) Hemoglobin 15.3 G/DL (14.2-18.0) Hematocrit 45.3 % (42.0-52.0) Mean Corpuscular Volume 89 FL (80-99) Mean Corpuscular Hemoglobin 29.9 PG (27.0-31.0) Mean Corpuscular Hemoglobin Concent 33.7 G/DL (32.0-36.0) Red Cell Distribution Width 12.1 % (11.6-14.8) Platelet Count 265 K/UL (150-450) Mean Platelet Volume 8.3 FL (6.5-10.1) Neutrophils (%) (Auto) % (45.0-75.0) Lymphocytes (%) (Auto) % (20.0-45.0) Monocytes (%) (Auto) % (1.0-10.0) Eosinophils (%) (Auto) % (0.0-3.0) Basophils (%) (Auto) % (0.0-2.0) Prothrombin Time 9.8 SEC (9.30-11.50) Prothromb Time International Ratio 0.9 (0.9-1.1) Activated Partial Thromboplast Time 24 SEC (23-33) Sodium Level 141 MMOL/L (136-145) Potassium Level 3.7 MMOL/L (3.5-5.1) Chloride Level 104 MMOL/L (98-107) Carbon Dioxide Level 25 MMOL/L (21-32) Anion Gap 13 mmol/L (5-15) Blood Urea Nitrogen 20 mg/dL (7-18) Creatinine 0.9 MG/DL (0.55-1.30) Estimat Glomerular Filtration Rate > 60 mL/min (>60) Glucose Level 145 MG/DL (74-106) Calcium Level 9.1 MG/DL (8.5-10.1) Total Bilirubin 0.5 MG/DL (0.2-1.0) Aspartate Amino Transf (AST/SGOT) 35 U/L (15-37) Alanine Aminotransferase (ALT/SGPT) 115 U/L (12-78) Alkaline Phosphatase 70 U/L (46-116) Troponin I 0.000 ng/mL (0.000-0.056) Total Protein 7.3 G/DL (6.4-8.2) Albumin 3.6 G/DL (3.4-5.0) Globulin 3.7 g/dL Albumin/Globulin Ratio 1.0 (1.0-2.7) Lipase 507 U/L (73-393) EKG Diagnostic Results Rate: normal Rhythm: NSR ST Segments: no acute changes Rhythm Strip Diag. Results EP Interpretation: yes Rate: 90 Rhythm: NSR, no PVC's, no ectopy Chest X-Ray Diagnostic Results Chest X-Ray Diagnostic Results : Chest X-Ray Ordered: Yes # of Views/Limited/Complete: 1 View Indication: Chest Pain EP Interpretation: Yes PA Xray: Interpretation reviewed Interpretation: no consolidation, no effusion, no pneumothorax, no acute cardiopulmonary disease Impression: No acute disease Electronically Signed by: Dr. Xavier Yan MD Other X-Ray Diagnostic Results Other X-Ray Diagnostic Results : X-Ray ordered: abdominal xray # of Views/Limited Vs Complete: 4 View Indication: Pain EP Interpretation: Yes Impression: Other - SBO, mutiple air fluid levels, normal bone, no free air Last Vital Signs Date Time Temp Pulse Resp B/P (MAP) Pulse Ox O2 Delivery O2 Flow Rate FiO2 09/02/17 18:45 98.1 09/02/17 18:10 18 114/78 92 Room Air 09/02/17 18:03 114 Status: improved Disposition: XFER SHT-TRM HOSP Condition: Serious Scripts No Active Prescriptions or Reported Meds XAVIER YAN M.D. Sep 02, 2017 18:48
[2017-09-02 19:02] LABS: HEMATOCRIT 45.3 % (42.0-52.0); HEMOGLOBIN 15.3 G/DL (14.2-18.0); MEAN CORPUSCULAR VOLUME 89 FL (80-99); PLATELET COUNT 265 K/UL (150-450); RED CELL DISTRIBUTION WIDTH 12.1 % (11.6-14.8); WHITE BLOOD COUNT 10.5 K/UL (4.8-10.8)
[2017-09-02 19:05] LABS: INR 0.9 (0.9-1.1)
[2017-09-02 19:28] LABS: ALANINE AMINOTRANSFERASE 115 U/L (12-78); ALBUMIN 3.6 G/DL (3.4-5.0); ALKALINE PHOSPHATASE 70 U/L (46-116); ANION GAP 13 mmol/L (5-15); ASPARTATE AMINO TRANSFERASE 35 U/L (15-37); BILIRUBIN,TOTAL 0.5 MG/DL (0.2-1.0); BLOOD UREA NITROGEN 20 mg/dL (7-18); CALCIUM 9.1 MG/DL (8.5-10.1); CARBON DIOXIDE 25 MMOL/L (21-32); CHLORIDE 104 MMOL/L (98-107); CREATININE 0.9 MG/DL (0.55-1.30); POTASSIUM 3.7 MMOL/L (3.5-5.1); SODIUM 141 MMOL/L (136-145)
[2017-09-02 19:30] VITALS: BP 131/89
[2017-09-02 20:21] LABS: APPEARANCE,URINE CLEAR; BILIRUBIN, URINE 2+ (NEGATIVE); GLUCOSE, URINE (UA) NEGATIVE (NEGATIVE); KETONES,URINE 3+ (NEGATIVE); LEUKOCYTE ESTERASE ,URINE 1+ (NEGATIVE); NITRITE,URINE NEGATIVE (NEGATIVE); PH,URINE 6 (4.5-8.0); PROTEIN,URINE 2+ (NEGATIVE); UROBILINOGEN,URINE 4 MG/DL (0.0-1.0)
[2017-09-02 20:24] LABS: COLOR,URINE YELLOW
[2017-09-02 21:00] VITALS: BP 122/84
[2017-09-02 22:24] VITALS: BP 117/76
[2017-09-02 23:45] VITALS: BP 121/73
[2017-09-03] VITALS: BP 132/84
[2017-09-03] MEDS ORDERED: Morphine Sulfate 2mg/ml Inj IVP PRN (01:00)
[2017-09-03] MEDS ORDERED: Morphine Sulfate 4mg/ml Inj IVP PRN (01:00)
[2017-09-03] MEDS: D5 1/2NS w/KCl 20mEq 1,000 ML IV SCH ×3 (02:43→20:07)
[2017-09-03] MEDS ORDERED: NORCO 10-325 T1 EACH ORAL (06:58)
[2017-09-03] MEDS ORDERED: CYCLOBENZAPRIN7.5 MG ORAL (07:05)
[2017-09-03 08:00] VITALS: BP 125/71
--- NOTE | 2017-09-03 09:18 | Diagnostic Imaging Report ---
Indication: Chest pain Technique: XRAY Chest 1v Comparison: None Findings: Cardiac silhouette is within normal limits. Subsegmental atelectasis is noted in the lung bases. There is no consolidation or pleural effusion. There is a chronic fracture deformity of the left clavicle. Impression: Subsegmental atelectasis of the lung bases. Clinical correlation/follow-up recommended. Old fracture deformity of the left clavicle.
--- NOTE | 2017-09-03 09:19 | Diagnostic Imaging Report ---
Indication: Abdominal pain Technique: XRAY Abdomen 2v Comparison: CT abdomen and pelvis 08/25/2017 Findings: The small bowel loops are dilated up to 7 cm with air-fluid levels consistent with obstruction. There are degenerative changes of the spine and bilateral hips. Impression: Small bowel obstruction.
--- NOTE | 2017-09-03 09:39 | Diagnostic Imaging Report ---
Indication: Abdominal pain Technique: Supine views of the abdomen Comparison: 09/02/2017 Findings: Small bowel loops are significantly decreased in caliber but mildly persistently dilated. Gas is seen in the colon. Osseous structures are grossly stable. Impression: Significantly decreased/improved caliber of small bowel loops with mild persistently dilated central loops. Clinical correlation recommended.
[2017-09-03] MEDS: Heparin 5000 units/ml inj SUBQ SCH ×2 (09:51→20:17)
[2017-09-03 10:48] LABS: BASOPHILS % (AUTO) 0.3 % (0.0-2.0); EOSINOPHILS % (AUTO) 0.4 % (0.0-3.0); HEMATOCRIT 36.3 % (42.0-52.0); HEMOGLOBIN 12.9 G/DL (14.2-18.0); LYMPHOCYTES % (AUTO) 10.4 % (20.0-45.0); MEAN CORPUSCULAR VOLUME 89 FL (80-99); NEUTROPHILS % (AUTO) 81.8 % (45.0-75.0); PLATELET COUNT 212 K/UL (150-450); RED BLOOD COUNT 4.06 M/UL (4.70-6.10); RED CELL DISTRIBUTION WIDTH 12.1 % (11.6-14.8)
[2017-09-03 11:32] LABS: ALANINE AMINOTRANSFERASE 77 U/L (12-78); ALBUMIN 2.8 G/DL (3.4-5.0); ALKALINE PHOSPHATASE 56 U/L (46-116); ANION GAP 9 mmol/L (5-15); ASPARTATE AMINO TRANSFERASE 21 U/L (15-37); BILIRUBIN,TOTAL 0.3 MG/DL (0.2-1.0); BLOOD UREA NITROGEN 21 mg/dL (7-18); CALCIUM 7.8 MG/DL (8.5-10.1); CARBON DIOXIDE 24 MMOL/L (21-32); CHLORIDE 109 MMOL/L (98-107); CREATININE 0.6 MG/DL (0.55-1.30); PHOSPHORUS 2.2 MG/DL (2.5-4.9); POTASSIUM 3.5 MMOL/L (3.5-5.1); SODIUM 142 MMOL/L (136-145)
[2017-09-03 12:00] VITALS: BP 134/85
--- NOTE | 2017-09-03 14:15 | History & Physical ---
History and Physical History & Physicial Dictated for Int Med-Dr Resendez no. [id number]. ROBE HENDERSON Sep 03, 2017 14:15
[2017-09-03 16:00] VITALS: BP 128/81
--- NOTE | 2017-09-03 19:15 | History and Physical Report ---
DATE OF ADMISSION: 09/02/2017 CHIEF COMPLAINT: The patient is a 56-year-old white male, presents with chief complaint of abdominal pain, nausea, and vomiting. HISTORY OF PRESENT ILLNESS: The patient was admitted to [facility] from 08/25/2017 to 08/28/2017. The patient was diagnosed with a high-grade small bowel obstruction. This resolved with NG decompression. The patient was advised to have surgery, however, the patient requested to leave. The patient states symptoms returned Monday09/01/2017. The patient began to experience nausea and vomiting. The patient has not had a bowel movement in a couple of days. The patient became increasingly nauseated. The patient was unable to keep down liquids or solids. The patient presented to [place] emergency room. The patient was found to again have small bowel obstruction. The patient is admitted with small bowel obstruction, nausea, vomiting, and abdominal pain. PAST MEDICAL HISTORY: Significant for: 1. Diverticulosis. 2. Osteoarthritis to the hip. 3. Meniere's disease. PAST SURGICAL HISTORY: Significant for. 1. Tonsillectomy. 2. Open inguinal hernia repair. 3. Laparoscopic open right inguinal hernia repair. 4. Laparoscopic right inguinal hernia repair. 5. Laparoscopic left inguinal hernia repair. CURRENT MEDICATIONS: The patient denies. ALLERGIES: No known drug allergies. 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 The patient denies tobacco use having quit in his 20s. The patient admits to social alcohol use. REVIEW OF SYSTEMS: CONSTITUTIONAL: The patient denies weight loss or weight gain. The patient denies fevers or chills. HEENT: The patient denies ear or throat pain. The patient denies headache. CARDIOVASCULAR: The patient denies palpitations or chest pain. CHEST: The patient denies wheeze or shortness of breath. ABDOMINAL: The patient denies diarrhea or constipation. The patient complains of nausea, vomiting, and constipation as above. The patient complains of abdominal pain, which is generalized. GENITOURINARY: The patient denies dysuria or increased frequency of urination. NEUROMUSCULAR: The patient denies seizures or generalized weakness. PHYSICAL EXAMINATION: VITAL SIGNS: Temperature 97.2 degrees, respirations 18, pulse 87, and blood pressure 132/84. GENERALLY: The patient is well-developed and well-nourished white male, who is in mild distress. HEENT: Eyes, pupils equal and responsive to light and accommodation. Extraocular movements are intact. NECK: Supple without lymphadenopathy. CHEST: Lungs are clear to auscultation bilaterally without wheezes or rales. CARDIOVASCULAR: Regular rate. S1 and S2 are normal without murmurs, rubs, or gallops. ABDOMEN: Distended, tender in all four quadrants to palpation with absent bowel sounds. No evidence of hepatosplenomegaly. Currently, no rebound or guarding noted. RECTAL: Refused. GENITAL: Refused. EXTREMITIES: Negative for clubbing, cyanosis, or edema. NEUROLOGIC: Cranial nerves II to XII are grossly intact without focal deficits. Motor strength is 5/5 bilaterally intact. Deep tendon reflexes are 2+ plantar. LABORATORY STUDIES: WBC 10.5, hemoglobin 15.3, hematocrit 45.3, and platelets 265,000. Sodium 141, potassium 3.7, chloride 104, CO2 25, BUN 20, creatinine 0.9, and glucose 145. ALT elevated at 115. Lipase elevated at 507. An abdominal series demonstrated dilated small loops of bowel consistent with small bowel obstruction. ASSESSMENT: This is a 56-year-old white male. 1. Abdominal pain. 2. Nausea and vomiting. 3. Small bowel obstruction. TREATMENT: Abdominal pain/nausea/vomiting/small bowel obstruction. A Surgery consultation is pending with Dr. Bob. A Gastroenterology consultation has been obtained with Dr. Keyur Chaney. An NG tube has been placed. A CT scan of the abdomen is pending. The patient will require surgery during this hospitalization. Luis Guo M.D. DR: Piper JOB#: [id number] CC:
--- NOTE | 2017-09-03 19:20 | General Progress Note ---
Progress Note Progress Note Surgery: full note to follow well known to me from recent admission. as admitted last week with dx of high grade sbo. NG tube placed and 3.5L evacuated. patient felt better and sbo seemed to be resolving but based on CT high grade with transition point so I had recommended upper GI / small bowel study with contrast to ensure resolved and not just feeling better because 3.5L was evacuated with NG tube. Unfortunately patient was very persistent on leaving and not compliant. 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 He declined exam and was discharged with instructions to return if worsening condition. Was discharged on monday and began to note discomfort monday and returned to ED sat with complaints of pain, nausea, and emesis. Currently doing okay and stable. Ng tube in place and improved. KUB demonstrates cluster of dilated bowel mid abdomen concerning for sbo. CT A/P with IV and oral contrast ordered. will follow up on CT scan cont NPO with IV fluids NG tube to low intermittent suction. thank you Ervin Bob Sep 03, 2017 19:20
[2017-09-03 20:00] VITALS: BP 159/94
[2017-09-03] MEDS: Morphine Sulfate 4mg/ml Inj IVP PRN (20:03)
--- NOTE | 2017-09-03 21:35 | Consultation ---
History of Present Illness General Chief Complaint: Abdominal Pain Present Illness Allergies: Coded Allergies: No Known Allergies (Unverified , 08/25/17) Patient History Healthcare decision maker Resuscitation status Advanced Directive on File Physical Exam Last 24 Hour Vital Signs Date Time Temp Pulse Resp B/P (MAP) Pulse Ox O2 Delivery O2 Flow Rate FiO2 09/03/17 20:00 100.2 80 17 159/94 98 Room Air 100.2 09/03/17 16:00 98.4 78 20 128/81 94 98.4 78 09/03/17 12:00 98.3 81 20 134/85 98.3 94 09/03/17 08:00 98.7 75 20 125/71 96 98.7 75 09/03/17 00:00 97.2 87 18 132/84 98 Room Air 97.2 09/02/17 23:45 84 13 121/73 96 Room Air 09/02/17 23:30 84 13 121/73 96 Room Air 09/02/17 22:24 86 14 117/76 95 Room Air Intake and Output 09/02/17 09/03/17 19:00 07:00 Intake Total 0 ml 225 ml Output Total 15 ml Balance 0 ml 210 ml Intake Oral 0 ml IV Total 225 ml Output Other 15 ml # Voids 3 # Bowel Movements 1 Laboratory Tests Test 09/03/17 10:32 White Blood Count 11.0 K/UL (4.8-10.8) H Red Blood Count 4.06 M/UL (4.70-6.10) L Hemoglobin 12.9 G/DL (14.2-18.0) L Hematocrit 36.3 % (42.0-52.0) L Mean Corpuscular Volume 89 FL (80-99) Mean Corpuscular Hemoglobin 31.6 PG (27.0-31.0) H Mean Corpuscular Hemoglobin Concent 35.4 G/DL (32.0-36.0) Red Cell Distribution Width 12.1 % (11.6-14.8) Platelet Count 212 K/UL (150-450) Mean Platelet Volume 8.0 FL (6.5-10.1) Neutrophils (%) (Auto) 81.8 % (45.0-75.0) H Lymphocytes (%) (Auto) 10.4 % (20.0-45.0) L Monocytes (%) (Auto) 7.0 % (1.0-10.0) Eosinophils (%) (Auto) 0.4 % (0.0-3.0) Basophils (%) (Auto) 0.3 % (0.0-2.0) Sodium Level 142 MMOL/L (136-145) Potassium Level 3.5 MMOL/L (3.5-5.1) Chloride Level 109 MMOL/L (98-107) H Carbon Dioxide Level 24 MMOL/L (21-32) Anion Gap 9 mmol/L (5-15) Blood Urea Nitrogen 21 mg/dL (7-18) H Creatinine 0.6 MG/DL (0.55-1.30) Estimat Glomerular Filtration Rate > 60 mL/min (>60) Glucose Level 109 MG/DL (74-106) H Calcium Level 7.8 MG/DL (8.5-10.1) L Phosphorus Level 2.2 MG/DL (2.5-4.9) L Magnesium Level 2.1 MG/DL (1.8-2.4) Total Bilirubin 0.3 MG/DL (0.2-1.0) Aspartate Amino Transf (AST/SGOT) 21 U/L (15-37) Alanine Aminotransferase (ALT/SGPT) 77 U/L (12-78) Alkaline Phosphatase 56 U/L (46-116) Total Protein 5.7 G/DL (6.4-8.2) L Albumin 2.8 G/DL (3.4-5.0) L Globulin 2.9 g/dL Albumin/Globulin Ratio 1.0 (1.0-2.7) Height (Feet): 5 Height (Inches): 11.00 Weight (Pounds): 180 Medications Current Medications Medications (Trade) Dose Ordered Sig/Sandi Route PRN Reason Start Time Stop Time Status Last Admin Dose Admin Acetaminophen (Tylenol) 650 mg Q6H PRN ORAL Mild Pain/Temp > 100.5 09/03/17 00:45 10/03/17 00:44 Dextrose/ Electrolytes 1,000 ml @ 125 mls/hr Q8H IV 09/03/17 19:30 10/03/17 19:29 09/03/17 20:07 Heparin Sodium (Porcine) (Heparin 5000 units/ml) 5,000 units EVERY 12 HOURS SUBQ 09/03/17 09:00 5/22/18 08:59 09/03/17 20:17 Morphine Sulfate (Morphine Sulfate) 2 mg Q4H PRN IVP Moderate Pain (Pain Scale 4-6) 09/03/17 20:00 09/10/17 00:59 09/03/17 20:03 Morphine Sulfate (Morphine Sulfate) 4 mg Q4H PRN IVP Severe Pain (Pain Scale 7-10) 09/03/17 01:00 09/10/17 00:59 Ondansetron HCl (Zofran) 4 mg Q6H PRN IVP Nausea & Vomiting 09/03/17 00:45 10/03/17 00:44 Jojo Cooper MD Sep 03, 2017 21:35
[2017-09-04 00:14] VITALS: BP 142/86
[2017-09-04] MEDS: D5 1/2NS w/KCl 20mEq 1,000 ML IV SCH ×3 (01:05→20:05)
[2017-09-04] MEDS: Morphine Sulfate 4mg/ml Inj IVP PRN (02:10)
[2017-09-04 04:00] VITALS: BP 129/83
[2017-09-04 07:28] LABS: BASOPHILS % (AUTO) 0.5 % (0.0-2.0); EOSINOPHILS % (AUTO) 0.7 % (0.0-3.0); HEMATOCRIT 38.3 % (42.0-52.0); HEMOGLOBIN 13.9 G/DL (14.2-18.0); LYMPHOCYTES % (AUTO) 13.1 % (20.0-45.0); MEAN CORPUSCULAR VOLUME 89 FL (80-99); MONOCYTES % (AUTO) 7.9 % (1.0-10.0); NEUTROPHILS % (AUTO) 77.7 % (45.0-75.0); PLATELET COUNT 220 K/UL (150-450); RED BLOOD COUNT 4.32 M/UL (4.70-6.10); RED CELL DISTRIBUTION WIDTH 11.6 % (11.6-14.8); WHITE BLOOD COUNT 9.1 K/UL (4.8-10.8)
[2017-09-04 08:02] VITALS: BP 138/88
[2017-09-04 09:46] LABS: ANION GAP 6 mmol/L (5-15); BLOOD UREA NITROGEN 6 mg/dL (7-18); CALCIUM 8.4 MG/DL (8.5-10.1); CARBON DIOXIDE 30 MMOL/L (21-32); CHLORIDE 102 MMOL/L (98-107); CREATININE 0.7 MG/DL (0.55-1.30); POTASSIUM 3.4 MMOL/L (3.5-5.1); SODIUM 138 MMOL/L (136-145)
[2017-09-04] MEDS: Heparin 5000 units/ml inj SUBQ SCH ×2 (10:17→20:07)
[2017-09-04 10:53] LABS: AMYLASE 86 U/L (25-115)
--- NOTE | 2017-09-04 11:24 | GI Initial Consult Note ---
History of Present Illness General Date patient seen: Sep 04, 2017 Time patient seen: 11:25 Reason for Hospitalization: Abdominal Pain Referring physician: MAYITO GUERRERO Reason for Consultation: ABDOMINAL PAIN Present Illness HPI Patient has a history of laparoscopic hernia repair. Patient was recently admitted for small bowel obstruction. No surgical intervention was performed. Patient was discharge because a spontaneously resolved. Patient unfortunately returns with similar symptoms of abdominal pain nausea vomiting. He denies any fever chest pain shortness of breath. Symptoms noted to be severe and he feels that is consistent with his prior history of small bowel traction. He states that he is not passing gas. Symptoms noted to be severe.No other modifying factors. No other associated signs and symptoms. No other complaints were noted. GI consulted for abdominal pain. Pt seen, awake A&Ox4 NAD with no active s/ sx of N/V. Per RN report, patient has been having BM. NGT is currently out. Surgery follows. No other complaints noted. Med list reviewed/reconciled: Yes Allergies: Coded Allergies: No Known Allergies (Unverified , 08/25/17) Patient History History Provided By: Patient, Medical Record PMH Narrative Past Medical History: none PMH Narrative small bowel obstruction Past Surgical History: other - laparoscopic hernia repair Pertinent Family History: none Social History: Denies: smoking, alcohol use, drug use Reviewed Nursing Documentation: PMH: Agreed; PSxH: Agreed Nursing Documentation-PMH Hx Cardiac Problems: No Hx Cancer: Yes - skin Hx Gastrointestinal Problems: Yes Hx Neurological Problems: No Social History: Denies: smoking, alcohol use, drug use, other Review of Systems All Other Systems: negative except mentioned in HPI Physical Exam Vital Signs Date Time Temp Pulse Resp B/P (MAP) Pulse Ox O2 Delivery O2 Flow Rate FiO2 09/02/17 18:03 98.1 114 18 114/78 92 Room Air 98.1 Sp02 EP Interpretation: reviewed, normal Labs Laboratory Tests Test 09/04/17 07:00 White Blood Count 9.1 K/UL (4.8-10.8) Red Blood Count 4.32 M/UL (4.70-6.10) L Hemoglobin 13.9 G/DL (14.2-18.0) L Hematocrit 38.3 % (42.0-52.0) L Mean Corpuscular Volume 89 FL (80-99) Mean Corpuscular Hemoglobin 32.3 PG (27.0-31.0) H Mean Corpuscular Hemoglobin Concent 36.4 G/DL (32.0-36.0) H Red Cell Distribution Width 11.6 % (11.6-14.8) Platelet Count 220 K/UL (150-450) Mean Platelet Volume 8.3 FL (6.5-10.1) Neutrophils (%) (Auto) 77.7 % (45.0-75.0) H Lymphocytes (%) (Auto) 13.1 % (20.0-45.0) L Monocytes (%) (Auto) 7.9 % (1.0-10.0) Eosinophils (%) (Auto) 0.7 % (0.0-3.0) Basophils (%) (Auto) 0.5 % (0.0-2.0) Sodium Level 138 MMOL/L (136-145) Potassium Level 3.4 MMOL/L (3.5-5.1) L Chloride Level 102 MMOL/L (98-107) Carbon Dioxide Level 30 MMOL/L (21-32) Anion Gap 6 mmol/L (5-15) Blood Urea Nitrogen 6 mg/dL (7-18) L Creatinine 0.7 MG/DL (0.55-1.30) Estimat Glomerular Filtration Rate > 60 mL/min (>60) Glucose Level 122 MG/DL (74-106) H Calcium Level 8.4 MG/DL (8.5-10.1) L Amylase Level 86 U/L (25-115) Lipase 286 U/L (73-393) General Appearance: well appearing, no apparent distress, alert Head: normocephalic EENT: PERRL/EOMI, normal ENT inspection Neck: supple Respiratory: normal breath sounds, no respiratory distress Cardiovascular: normal rate Gastrointestinal: normal inspection, non tender, soft, normal bowel sounds, non -distended Rectal: deferred Genitourinary: deferred Musculoskeletal: normal inspection, back normal Neurologic: normal inspection, alert, oriented x3, responsive Psychiatric: normal inspection, judgement/insight normal, memory normal Skin: normal inspection, normal color, no rash, warm/dry, palpation normal, well hydrated Lymphatic: normal inspection, no adenopathy Current Medications Current Medications Medications (Trade) Dose Ordered Sig/Sandi Route PRN Reason Start Time Stop Time Status Last Admin Dose Admin Acetaminophen (Tylenol) 650 mg Q6H PRN ORAL Mild Pain/Temp > 100.5 09/03/17 00:45 10/03/17 00:44 Dextrose/ Electrolytes 1,000 ml @ 125 mls/hr Q8H IV 09/03/17 19:30 10/03/17 19:29 09/04/17 10:11 Heparin Sodium (Porcine) (Heparin 5000 units/ml) 5,000 units EVERY 12 HOURS SUBQ 09/03/17 09:00 10/03/17 08:59 09/04/17 10:17 Morphine Sulfate (Morphine Sulfate) 2 mg Q4H PRN IVP Moderate Pain (Pain Scale 4-6) 09/03/17 20:00 09/10/17 00:59 09/04/17 02:10 Morphine Sulfate (Morphine Sulfate) 4 mg Q4H PRN IVP Severe Pain (Pain Scale 7-10) 09/03/17 01:00 09/10/17 00:59 Ondansetron HCl (Zofran) 4 mg Q6H PRN IVP Nausea & Vomiting 09/03/17 00:45 10/03/17 00:44 GI: Plan Problems: (1) SBO (small bowel obstruction) (2) Nausea & vomiting Plan fu surgical recs diet per surgery >> CLD NGT now dc'd serial imaging prn IV fluids Ambulate and OOB fu labs Discussed with Dr. Chaney. Thank you for this patient referral, we will follow. Alis Martinez N.P. Sep 04, 2017 11:24
[2017-09-04 11:58] VITALS: BP 141/89
--- NOTE | 2017-09-04 14:32 | Diagnostic Imaging Report ---
Clinical Indication: Abdominal distention Technique: Patient ingested oral contrast no IV contrast utilized, as primary CT scanner was down and substitute mobile CT scanner is not equipped with a power injector. Spiral acquisition obtained through the abdomen and pelvis. Multiplanar reconstructions were generated. Total dose length product 97 mGycm. CTDIvol(s) 20 mGy. Dose reduction achieved using automated exposure control Comparison: 08/25/2017 Findings: There are scattered colonic diverticula. There is thickening of the proximal sigmoid wall and very slight infiltration of the perisigmoid fat. There is also suggestion of slight wall thickening of the terminal ileum and slight infiltration of the fat surrounding the terminal ileum. There is equivocal wall thickening of a few other distal ileal loops. The small bowel is not well-opacified, as almost all of the ingested contrast has passed through the small bowel and into the colon. There is some residual contrast within the stomach. No free or loculated intraperitoneal air or fluid. No bowel distention is demonstrated. There is a nasogastric tube present. Distal esophagus is unremarkable. Lack of IV contrast limits assessment of the solid organs. The liver, gallbladder,, bile ducts, pancreas, spleen, adrenals are grossly unremarkable. The right kidney demonstrates one or more punctate calyceal calculi. Left kidney is unremarkable. No hydronephrosis or hydroureter or ureteral calculi. The bladder is unremarkable. No pelvic mass or adenopathy. No retroperitoneal or mesenteric mass or adenopathy. The included lung bases demonstrate posterior dependent atelectatic changes and possibly mild interstitial congestion. Again demonstrated is bilateral L5 spondylolysis, grade 1 L5 on S1 spondylolisthesis. Impression: Suggestion of slight wall thickening of the terminal ileum and portions of the distal ileum, could indicate enteritis changes. Wall thickening of the proximal sigmoid and slight infiltration of the perisigmoid fat. Appearance is suggestive of acute diverticulitis. However, in view of the small bowel findings this could also represent some focal colitis. 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 Findings also discussed by phone with Dr. Bob at the time of interpretation The CT scanner at [facility] is accredited by the [employer] and the scans are performed using protocols designed to limit radiation exposure to as low as reasonably achievable to attain images of sufficient resolution adequate for diagnostic evaluation.
[2017-09-04 15:36] VITALS: BP 130/83
--- NOTE | 2017-09-04 17:53 | Internal Med Progress Note ---
Subjective Date of Service: Sep 04, 2017 Physician Name Robe Henderson Attending Physician Ken Resendez MD Current Medications Medications (Trade) Dose Ordered Sig/Sandi Route PRN Reason Start Time Stop Time Status Last Admin Dose Admin Acetaminophen (Tylenol) 650 mg Q6H PRN ORAL Mild Pain/Temp > 100.5 09/03/17 00:45 10/03/17 00:44 Dextrose/ Electrolytes 1,000 ml @ 125 mls/hr Q8H IV 09/03/17 19:30 10/03/17 19:29 09/04/17 10:11 Heparin Sodium (Porcine) (Heparin 5000 units/ml) 5,000 units EVERY 12 HOURS SUBQ 09/03/17 09:00 10/03/17 08:59 09/04/17 10:17 Morphine Sulfate (Morphine Sulfate) 2 mg Q4H PRN IVP Moderate Pain (Pain Scale 4-6) 09/03/17 20:00 09/10/17 00:59 09/04/17 02:10 Morphine Sulfate (Morphine Sulfate) 4 mg Q4H PRN IVP Severe Pain (Pain Scale 7-10) 09/03/17 01:00 09/10/17 00:59 Ondansetron HCl (Zofran) 4 mg Q6H PRN IVP Nausea & Vomiting 09/03/17 00:45 10/03/17 00:44 Allergies: Coded Allergies: No Known Allergies (Unverified , 08/25/17) ROS Limited/Unobtainable: No Constitutional: Reports: no symptoms HEENT: Reports: no symptoms Cardiovascular: Reports: no symptoms Respiratory: Reports: no symptoms Gastrointestinal/Abdominal: Reports: abdomen distended, abdominal pain Genitourinary: Reports: no symptoms Neurologic/Psychiatric: Reports: no symptoms Subjective 56 YO M admitted with high grade small bowel obstruction. Cover for Int Jerry-Dr Resendez Objective Last Vital Signs Date Time Temp Pulse Resp B/P (MAP) Pulse Ox O2 Delivery O2 Flow Rate FiO2 09/04/17 15:36 98.1 73 20 130/83 95 Room Air 98.1 General Appearance: WD/WN, no apparent distress, alert EENT: PERRL/EOMI, normal ENT inspection Neck: non-tender, normal alignment, supple, normal inspection Cardiovascular: normal peripheral pulses, normal rate, regular rhythm, no gallop/murmur, no JVD Respiratory/Chest: chest wall non-tender, lungs clear, normal breath sounds, no respiratory distress, no accessory muscle use Abdomen: decreased bowel sounds, distended, guarding, tender Extremities: normal range of motion, non-tender 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, no motor/sensory deficits Skin: normal pigmentation, warm/dry Laboratory Tests Test 09/04/17 07:00 White Blood Count 9.1 K/UL (4.8-10.8) Red Blood Count 4.32 M/UL (4.70-6.10) L Hemoglobin 13.9 G/DL (14.2-18.0) L Hematocrit 38.3 % (42.0-52.0) L Mean Corpuscular Volume 89 FL (80-99) Mean Corpuscular Hemoglobin 32.3 PG (27.0-31.0) H Mean Corpuscular Hemoglobin Concent 36.4 G/DL (32.0-36.0) H Red Cell Distribution Width 11.6 % (11.6-14.8) Platelet Count 220 K/UL (150-450) Mean Platelet Volume 8.3 FL (6.5-10.1) Neutrophils (%) (Auto) 77.7 % (45.0-75.0) H Lymphocytes (%) (Auto) 13.1 % (20.0-45.0) L Monocytes (%) (Auto) 7.9 % (1.0-10.0) Eosinophils (%) (Auto) 0.7 % (0.0-3.0) Basophils (%) (Auto) 0.5 % (0.0-2.0) Sodium Level 138 MMOL/L (136-145) Potassium Level 3.4 MMOL/L (3.5-5.1) L Chloride Level 102 MMOL/L (98-107) Carbon Dioxide Level 30 MMOL/L (21-32) Anion Gap 6 mmol/L (5-15) Blood Urea Nitrogen 6 mg/dL (7-18) L Creatinine 0.7 MG/DL (0.55-1.30) Estimat Glomerular Filtration Rate > 60 mL/min (>60) Glucose Level 122 MG/DL (74-106) H Calcium Level 8.4 MG/DL (8.5-10.1) L Amylase Level 86 U/L (25-115) Lipase 286 U/L (73-393) Intake and Output 09/03/17 09/04/17 19:00 07:00 Intake Total 750 ml 1250 ml Output Total 670 ml Balance 750 ml 580 ml IV Total 750 ml 1250 ml Output Urine Total 420 ml Gastric Drainage Total 250 ml # Voids 5 3 Assessment/Plan Problem List: (1) Pancreatitis (2) SBO (small bowel obstruction) Assessment & Plan: Resolving; NG tube removed earlier by surgery. recurrent-? surgical repair? CT abdomen performed without contrast-see CT result. NPO per surgery (3) Nausea & vomiting Assessment & Plan: Due to small bowel obstruction (4) Menieres disease (5) Diverticulosis (6) Hypokalemia Assessment & Plan: cont IV fluids. Status: not improved ROBE HENDERSON Sep 04, 2017 17:53
[2017-09-04 20:00] VITALS: BP 114/76
--- NOTE | 2017-09-04 21:51 | General Surgery Progress Note ---
General Surgery-Progress Note Subjective Symptoms: improved, pain absent Additional Comments no acute events. doing well. improved. no n/v/f/c. hungry. CT reviewed. Objective Last 24 Hour Vital Signs Date Time Temp Pulse Resp B/P (MAP) Pulse Ox O2 Delivery O2 Flow Rate FiO2 09/04/17 20:00 97.5 68 18 114/76 95 Room Air 97.5 09/04/17 15:36 98.1 73 20 130/83 95 Room Air 98.1 09/04/17 11:58 98.6 80 20 141/89 96 Room Air 98.6 09/04/17 08:02 98.7 74 20 138/88 94 Room Air 98.7 09/04/17 04:00 98.2 77 18 129/83 94 Room Air 98.2 09/04/17 00:14 98.8 82 16 142/86 97 Room Air 98.8 I&O Intake and Output 09/03/17 09/04/17 19:00 07:00 Intake Total 750 ml 1250 ml Output Total 670 ml Balance 750 ml 580 ml IV Total 750 ml 1250 ml Output Urine Total 420 ml Gastric Drainage Total 250 ml # Voids 5 3 Cardiovascular: RSR Respiratory: clear Abdomen: soft, flat, non-tender, present bowel sounds Extremities: no edema, no tenderness, no cyanosis Laboratory Tests Test 09/04/17 07:00 White Blood Count 9.1 K/UL (4.8-10.8) Red Blood Count 4.32 M/UL (4.70-6.10) L Hemoglobin 13.9 G/DL (14.2-18.0) L Hematocrit 38.3 % (42.0-52.0) L Mean Corpuscular Volume 89 FL (80-99) Mean Corpuscular Hemoglobin 32.3 PG (27.0-31.0) H Mean Corpuscular Hemoglobin Concent 36.4 G/DL (32.0-36.0) H Red Cell Distribution Width 11.6 % (11.6-14.8) Platelet Count 220 K/UL (150-450) Mean Platelet Volume 8.3 FL (6.5-10.1) Neutrophils (%) (Auto) 77.7 % (45.0-75.0) H Lymphocytes (%) (Auto) 13.1 % (20.0-45.0) L Monocytes (%) (Auto) 7.9 % (1.0-10.0) Eosinophils (%) (Auto) 0.7 % (0.0-3.0) Basophils (%) (Auto) 0.5 % (0.0-2.0) Sodium Level 138 MMOL/L (136-145) Potassium Level 3.4 MMOL/L (3.5-5.1) L Chloride Level 102 MMOL/L (98-107) Carbon Dioxide Level 30 MMOL/L (21-32) Anion Gap 6 mmol/L (5-15) Blood Urea Nitrogen 6 mg/dL (7-18) L Creatinine 0.7 MG/DL (0.55-1.30) Estimat Glomerular Filtration Rate > 60 mL/min (>60) Glucose Level 122 MG/DL (74-106) H Calcium Level 8.4 MG/DL (8.5-10.1) L Amylase Level 86 U/L (25-115) Lipase 286 U/L (73-393) Plan Problems: (1) Diverticulitis Assessment & Plan: CT reviewed. no obstruction noted. pain LLQ and resolving. likely attack of diverticulitis this time and unrelated to recent SBO which resolved. -okay for diet -potential d/c soon with medical management of diverticulitis thank you (2) Dehydration (3) Leukocytosis (4) Nausea & vomiting (5) SBO (small bowel obstruction) (6) Hypokalemia (7) Diverticulosis (8) Menieres disease (9) Pancreatitis Ervin Bob Sep 04, 2017 21:51
[2017-09-05] VITALS: BP 118/72
[2017-09-05] MEDS: D5 1/2NS w/KCl 20mEq 1,000 ML IV SCH ×2 (03:57→14:21)
[2017-09-05 04:00] VITALS: BP 112/76
[2017-09-05 08:23] VITALS: BP 115/70
[2017-09-05] MEDS: Heparin 5000 units/ml inj SUBQ SCH (09:22)
[2017-09-05 09:24] LABS: BASOPHILS % (AUTO) 0.5 % (0.0-2.0); EOSINOPHILS % (AUTO) 1.4 % (0.0-3.0); HEMATOCRIT 41.6 % (42.0-52.0); HEMOGLOBIN 14.3 G/DL (14.2-18.0); LYMPHOCYTES % (AUTO) 21.5 % (20.0-45.0); MEAN CORPUSCULAR VOLUME 89 FL (80-99); MONOCYTES % (AUTO) 8.2 % (1.0-10.0); NEUTROPHILS % (AUTO) 68.5 % (45.0-75.0); PLATELET COUNT 245 K/UL (150-450); RED BLOOD COUNT 4.67 M/UL (4.70-6.10); RED CELL DISTRIBUTION WIDTH 11.8 % (11.6-14.8); WHITE BLOOD COUNT 5.2 K/UL (4.8-10.8)
[2017-09-05 09:46] LABS: ANION GAP 5 mmol/L (5-15); BLOOD UREA NITROGEN 6 mg/dL (7-18); CALCIUM 8.6 MG/DL (8.5-10.1); CARBON DIOXIDE 31 MMOL/L (21-32); CHLORIDE 104 MMOL/L (98-107); CREATININE 0.8 MG/DL (0.55-1.30); PHOSPHORUS 3.1 MG/DL (2.5-4.9); SODIUM 140 MMOL/L (136-145)
[2017-09-05 12:03] VITALS: BP 134/67
--- NOTE | 2017-09-05 14:26 | GI Progress Note ---
Assessment/Plan Problems: (1) Diverticulitis ICD Codes: K57.92 - Diverticulitis of intestine, part unspecified, without perforation or abscess without bleeding SNOMED: 826806318 (2) Dehydration ICD Codes: E86.0 - Dehydration SNOMED: 02025560 (3) Pancreatitis ICD Codes: K85.90 - Acute pancreatitis without necrosis or infection, unspecified SNOMED: 62293551 (4) SBO (small bowel obstruction) ICD Codes: K56.609 - Unspecified intestinal obstruction, unspecified as to partial versus complete obstruction SNOMED: 263922188 Status: stable Status Narrative Discussed with Dr. Chaney. Assessment/Plan CT AP reviewed suggestive of diverticulitis d/w with surgery >> pt stable for DC diet per surgery >> tolerating soft diet NGT now dc'd serial imaging prn IV fluids Ambulate and OOB fu labs Subjective Subjective liquid BM Objective Last 24 Hour Vital Signs Date Time Temp Pulse Resp B/P (MAP) Pulse Ox O2 Delivery O2 Flow Rate FiO2 09/05/17 12:03 98.8 72 21 134/67 96 Room Air 98.8 09/05/17 08:23 97.8 74 18 115/70 97 Room Air 97.8 09/05/17 04:00 97.6 62 18 112/76 95 Room Air 97.6 09/05/17 00:00 97.2 70 18 118/72 95 Room Air 97.2 09/04/17 20:00 97.5 68 18 114/76 95 Room Air 97.5 09/04/17 15:36 98.1 73 20 130/83 95 Room Air 98.1 Intake and Output 09/04/17 09/05/17 19:00 07:00 Intake Total 1125 ml 125 ml Output Total 600 ml 400 ml Balance 525 ml -275 ml IV Total 1125 ml 125 ml Output Urine Total 600 ml 400 ml # Voids 3 3 # Bowel Movements 2 1 Laboratory Tests Test 09/05/17 09:10 White Blood Count 5.2 K/UL (4.8-10.8) Red Blood Count 4.67 M/UL (4.70-6.10) L Hemoglobin 14.3 G/DL (14.2-18.0) Hematocrit 41.6 % (42.0-52.0) L Mean Corpuscular Volume 89 FL (80-99) Mean Corpuscular Hemoglobin 30.5 PG (27.0-31.0) Mean Corpuscular Hemoglobin Concent 34.2 G/DL (32.0-36.0) Red Cell Distribution Width 11.8 % (11.6-14.8) Platelet Count 245 K/UL (150-450) Mean Platelet Volume 8.5 FL (6.5-10.1) Neutrophils (%) (Auto) 68.5 % (45.0-75.0) Lymphocytes (%) (Auto) 21.5 % (20.0-45.0) Monocytes (%) (Auto) 8.2 % (1.0-10.0) Eosinophils (%) (Auto) 1.4 % (0.0-3.0) Basophils (%) (Auto) 0.5 % (0.0-2.0) Sodium Level 140 MMOL/L (136-145) Potassium Level 4.0 MMOL/L (3.5-5.1) Chloride Level 104 MMOL/L (98-107) Carbon Dioxide Level 31 MMOL/L (21-32) Anion Gap 5 mmol/L (5-15) Blood Urea Nitrogen 6 mg/dL (7-18) L Creatinine 0.8 MG/DL (0.55-1.30) Estimat Glomerular Filtration Rate > 60 mL/min (>60) Glucose Level 82 MG/DL (74-106) Calcium Level 8.6 MG/DL (8.5-10.1) Phosphorus Level 3.1 MG/DL (2.5-4.9) Magnesium Level 2.2 MG/DL (1.8-2.4) Height (Feet): 5 Height (Inches): 11.00 Weight (Pounds): 180 General Appearance: WD/WN, no apparent distress, alert Cardiovascular: normal rate Respiratory/Chest: normal breath sounds, no respiratory distress Abdominal Exam: normal bowel sounds, non tender, soft Extremities: normal range of motion, non-tender Alis Martinez.Thanh Sep 05, 2017 14:26
--- NOTE | 2017-09-05 14:48 | General Surgery Progress Note ---
General Surgery-Progress Note Subjective Symptoms: improved, pain absent, tolerating diet, passing flatus, BM Additional Comments no acute events. pain resolved. tolerating diet. feels well. loose bm's Objective Last 24 Hour Vital Signs Date Time Temp Pulse Resp B/P (MAP) Pulse Ox O2 Delivery O2 Flow Rate FiO2 09/05/17 12:03 98.8 72 21 134/67 96 Room Air 98.8 09/05/17 08:23 97.8 74 18 115/70 97 Room Air 97.8 09/05/17 04:00 97.6 62 18 112/76 95 Room Air 97.6 09/05/17 00:00 97.2 70 18 118/72 95 Room Air 97.2 09/04/17 20:00 97.5 68 18 114/76 95 Room Air 97.5 09/04/17 15:36 98.1 73 20 130/83 95 Room Air 98.1 I&O Intake and Output 09/04/17 09/05/17 19:00 07:00 Intake Total 1125 ml 125 ml Output Total 600 ml 400 ml Balance 525 ml -275 ml IV Total 1125 ml 125 ml Output Urine Total 600 ml 400 ml # Voids 3 3 # Bowel Movements 2 1 Drains: none Cardiovascular: RSR Respiratory: clear Abdomen: soft, flat, non-tender, present bowel sounds Extremities: no edema Laboratory Tests Test 09/05/17 09:10 White Blood Count 5.2 K/UL (4.8-10.8) Red Blood Count 4.67 M/UL (4.70-6.10) L Hemoglobin 14.3 G/DL (14.2-18.0) Hematocrit 41.6 % (42.0-52.0) L Mean Corpuscular Volume 89 FL (80-99) Mean Corpuscular Hemoglobin 30.5 PG (27.0-31.0) Mean Corpuscular Hemoglobin Concent 34.2 G/DL (32.0-36.0) Red Cell Distribution Width 11.8 % (11.6-14.8) Platelet Count 245 K/UL (150-450) Mean Platelet Volume 8.5 FL (6.5-10.1) Neutrophils (%) (Auto) 68.5 % (45.0-75.0) Lymphocytes (%) (Auto) 21.5 % (20.0-45.0) Monocytes (%) (Auto) 8.2 % (1.0-10.0) Eosinophils (%) (Auto) 1.4 % (0.0-3.0) Basophils (%) (Auto) 0.5 % (0.0-2.0) Sodium Level 140 MMOL/L (136-145) Potassium Level 4.0 MMOL/L (3.5-5.1) Chloride Level 104 MMOL/L (98-107) Carbon Dioxide Level 31 MMOL/L (21-32) Anion Gap 5 mmol/L (5-15) Blood Urea Nitrogen 6 mg/dL (7-18) L Creatinine 0.8 MG/DL (0.55-1.30) Estimat Glomerular Filtration Rate > 60 mL/min (>60) Glucose Level 82 MG/DL (74-106) Calcium Level 8.6 MG/DL (8.5-10.1) Phosphorus Level 3.1 MG/DL (2.5-4.9) Magnesium Level 2.2 MG/DL (1.8-2.4) Plan Problems: (1) Diverticulitis Assessment & Plan: CT reviewed. no obstruction noted. pain LLQ and resolving. likely attack of diverticulitis this time and unrelated to recent SBO which resolved. -okay for diet -Rx flagyl -d/c home thank you (2) Dehydration (3) Leukocytosis (4) Nausea & vomiting (5) SBO (small bowel obstruction) (6) Hypokalemia (7) Diverticulosis (8) Menieres disease (9) Pancreatitis Ervin Bob Sep 05, 2017 14:48
--- NOTE | 2017-09-05 15:15 | Internal Med Progress Note ---
Subjective Date of Service: Sep 05, 2017 Physician Name Luis Henderson Attending Physician Ken Resendez MD Current Medications Medications (Trade) Dose Ordered Sig/Sandi Route PRN Reason Start Time Stop Time Status Last Admin Dose Admin Acetaminophen (Tylenol) 650 mg Q6H PRN ORAL Mild Pain/Temp > 100.5 09/03/17 00:45 10/03/17 00:44 Dextrose/ Electrolytes 1,000 ml @ 125 mls/hr Q8H IV 09/03/17 19:30 10/03/17 19:29 09/05/17 14:21 Heparin Sodium (Porcine) (Heparin 5000 units/ml) 5,000 units EVERY 12 HOURS SUBQ 09/03/17 09:00 10/03/17 08:59 09/05/17 09:22 Morphine Sulfate (Morphine Sulfate) 2 mg Q4H PRN IVP Moderate Pain (Pain Scale 4-6) 09/03/17 20:00 09/10/17 00:59 09/04/17 02:10 Morphine Sulfate (Morphine Sulfate) 4 mg Q4H PRN IVP Severe Pain (Pain Scale 7-10) 09/03/17 01:00 09/10/17 00:59 Ondansetron HCl (Zofran) 4 mg Q6H PRN IVP Nausea & Vomiting 09/03/17 00:45 10/03/17 00:44 Allergies: Coded Allergies: No Known Allergies (Unverified , 08/25/17) ROS Limited/Unobtainable: No Constitutional: Reports: no symptoms HEENT: Reports: no symptoms Cardiovascular: Reports: no symptoms Respiratory: Reports: no symptoms Gastrointestinal/Abdominal: Reports: no symptoms Genitourinary: Reports: no symptoms Neurologic/Psychiatric: Reports: no symptoms Subjective 56 YO M admitted with high grade small bowel obstruction. Cover for Int Med-Dr Resendez. Tolerating soft diet Objective Last Vital Signs Date Time Temp Pulse Resp B/P (MAP) Pulse Ox O2 Delivery O2 Flow Rate FiO2 09/05/17 12:03 98.8 72 21 134/67 96 Room Air 98.8 Laboratory Tests Test 09/05/17 09:10 White Blood Count 5.2 K/UL (4.8-10.8) Red Blood Count 4.67 M/UL (4.70-6.10) L Hemoglobin 14.3 G/DL (14.2-18.0) Hematocrit 41.6 % (42.0-52.0) L Mean Corpuscular Volume 89 FL (80-99) Mean Corpuscular Hemoglobin 30.5 PG (27.0-31.0) Mean Corpuscular Hemoglobin Concent 34.2 G/DL (32.0-36.0) Red Cell Distribution Width 11.8 % (11.6-14.8) Platelet Count 245 K/UL (150-450) Mean Platelet Volume 8.5 FL (6.5-10.1) Neutrophils (%) (Auto) 68.5 % (45.0-75.0) Lymphocytes (%) (Auto) 21.5 % (20.0-45.0) Monocytes (%) (Auto) 8.2 % (1.0-10.0) Eosinophils (%) (Auto) 1.4 % (0.0-3.0) Basophils (%) (Auto) 0.5 % (0.0-2.0) Sodium Level 140 MMOL/L (136-145) Potassium Level 4.0 MMOL/L (3.5-5.1) Chloride Level 104 MMOL/L (98-107) Carbon Dioxide Level 31 MMOL/L (21-32) Anion Gap 5 mmol/L (5-15) Blood Urea Nitrogen 6 mg/dL (7-18) L Creatinine 0.8 MG/DL (0.55-1.30) Estimat Glomerular Filtration Rate > 60 mL/min (>60) Glucose Level 82 MG/DL (74-106) Calcium Level 8.6 MG/DL (8.5-10.1) Phosphorus Level 3.1 MG/DL (2.5-4.9) Magnesium Level 2.2 MG/DL (1.8-2.4) Microbiology Date/Time Source Procedure Growth Status 09/02/17 19:38 Nasal Nares MRSA Culture - Final NO METHICILLIN RESISTANT STAPH AUREUS... Complete 09/02/17 19:38 Rectum VRE Culture - Final Enterococcus Faecalis - Vre Complete Intake and Output 09/04/17 09/05/17 19:00 07:00 Intake Total 1125 ml 125 ml Output Total 600 ml 400 ml Balance 525 ml -275 ml IV Total 1125 ml 125 ml Output Urine Total 600 ml 400 ml # Voids 3 3 # Bowel Movements 2 1 Objective General Appearance: WD/WN, no apparent distress, alert EENT: PERRL/EOMI, normal ENT inspection Neck: non-tender, normal alignment, supple, normal inspection Cardiovascular: normal peripheral pulses, normal rate, regular rhythm, no gallop/murmur, no JVD Respiratory/Chest: chest wall non-tender, lungs clear, normal breath sounds, no respiratory distress, no accessory muscle use Abdomen: decreased bowel sounds, distended, guarding, tender Extremities: normal range of motion, non-tender Neurologic: hand counter II-XII grossly normal, no motor/sensory deficits Skin: normal pigmentation, warm/dry Assessment/Plan Problem List: (1) Pancreatitis (2) SBO (small bowel obstruction) Assessment & Plan: Resolved; NG tube removed earlier by surgery. recurrent-? surgical repair? CT abdomen performed without contrast-see CT result. Tolerating soft diet (3) Nausea & vomiting Assessment & Plan: Due to small bowel obstruction (4) Menieres disease (5) Diverticulosis Assessment & Plan: Continue flagyl per surgery (6) Hypokalemia Assessment & Plan: cont IV fluids. Status: progressing Assessment/Plan Discharge home today. Flagyl 500 mg TID for 7 days LUIS HENDERSON Sep 05, 2017 15:15
[2017-09-05 15:19] VITALS: BP 131/72
[2017-09-05] MEDS ORDERED: FLAGYL500 MG ORAL (16:00)
--- NOTE | 2017-09-07 12:31 | Discharge Summary ---
Discharge Summary Discharge Summary Discharge Summary DATE OF ADMISSION: 09/02/2017 DATE OF DISCHARGE: 09/05/2017 CONSULTANTS: Dr. Jojo Chaney BRIEF HOSPITAL COURSE: Patient is a 56-year-old white male, presented with chief complaint of abdominal pain and nausea and vomiting. He was recently admitted to [facility] on August 25 to 08/28/2017, where he was diagnosed with high- grade small bowel obstruction. This resolved with NG decompression. He was advised to have surgery, however, the patient requested to leave. He returned 09/01/2017. He then again have nausea and vomiting. He denied bowel movement in a couple of days. He had increased nausea and was unable to keep anything down liquids or solids. He has medical history significant for diverticulosis, osteoarthritis, Mnire's disease. On evaluation at ED, blood work was not impressive. Lipase was 507. Abdominal x-ray confirmed presence of small bowel obstruction. NG tube was placed. Chest x-ray showed no acute disease. Patient was planned transferred to [facility], however transfer was canceled and he was admitted to [facility] for evaluation of small bowel obstruction. Surgical evaluation was done. He was placed on nothing by mouth status with IV fluids. NG tube was connected to low intermittent suction. A repeat abdominal KUB showed significantly decreased/improved caliber of small bowel loops. CT of the abdomen did not show any obstruction with slight wall thickening in the terminal ileum and portions of distal ileum, possibly from enteritis. NG tube was discontinued. Diet was advanced. Abdominal pain possibly secondary to enteritis and not due to small bowel obstruction. He was eventually discharged home. FINAL DIAGNOSES: Small bowel obstruction resolved Nausea and vomiting Mnire's disease Diverticulosis Hypokalemia Pancreatitis Dehydration DISPOSITION: Patient was discharged home. DISCHARGE MEDICATIONS: Refer to Discharge Medication List. Continue with Flagyl 500 mg by mouth 3 times a day for 1 week. DISCHARGE INSTRUCTIONS: Follow up with PCP in a week. I have been assigned to dictate discharge summary on this account, and I was not involved in the patient's management. Davina Wilcox NP Sep 07, 2017 12:31
--- NOTE | 2017-09-13 16:02 | Cardiology Report ---
APPROVED REPORT EKG Measurement Heart [id number] Normal sinus rhythm Left axis deviation Abnormal ECG
== END 2017-09-05 18:28 | disposition home or self-care (01) | DRG 388 ==
LOC: EMR 19:25 → 3E 21:49 → EDBEDREQ 22:04
DX: K56.690 Other partial intestinal obstruction (principal); K85.90 Acute pancreatitis without necrosis or infection, unspecified; K57.32 Diverticulitis of large intestine without perforation or abscess without bleeding; E87.6 Hypokalemia; H81.09 Meniere's disease, unspecified ear; E86.0 Dehydration
CPT/HCPCS: 36415; 71045; 74018; 74019; 74177; 80048; 80053; 81003; 82150; 83690; 83735; 84100; 84484; 85007; 85025; 85610; 85730; 87081; 93005; 99285; J2405